=== PATIENT | female | born 1935 | race Caucasian/White ===

== ENCOUNTER 2017-07-13 00:05 | Inpatient (IN) | payer MEDICARE ==
[2017-07-13] MEDS ORDERED: BAYER CHEWABLE81 MG PO (01:12)
[2017-07-13] MEDS ORDERED: MULTIPLE VITAMI1 TA1 PO (01:12)
--- NOTE | 2017-07-13 01:19 | NUR ---
Patient arrived via EMS from [facility] at 00:05, patient alert and oriented, code status is Full Code, code wor is Cindy, daughter signed consents, physician aware, medications entered, will continue to monitor, Patient had been having Hallucinations and confusion.
[2017-07-13 04:15] VITALS: BP 138/70; BMI 21.0
[2017-07-13 06:46] LABS: BASOPHILS 0.4 % (0-2); EOSINOPHILS 5.3 % (0-7); HEMATOCRIT 43.3 % (36.0-48.0); HEMOGLOBIN 14.3 g/dL (12-16); LYMPHOCYTES 19.3 % (15-50); MCH 30.1 pg (26.0-34.0); MCV 91.2 fL (80.0-100.0); MEAN PLATELET VOLUME 10.2 fL (7.4-10.4); MONOCYTES 11.9 % (2-11); NEUTROPHILS 63.1 % (40-80); PLATELET COUNT 213 10x3/uL (130-400); RBC 4.75 10x6/uL (4.00-5.40); WBC 5.7 10x3/uL (4.8-10.8)
[2017-07-13 06:56] LABS: HEMOGLOBIN A1C 5.5 % (4.8-6.0)
[2017-07-13 07:12] LABS: ALBUMIN 3.1 g/dL (3.4-5.0); BILIRUBIN - TOTAL 0.44 mg/dL (0.2-1.3); CALCIUM 9.1 mg/dL (8.5-10.1); CARBON DIOXIDE 26.9 mmol/L (21.0-32.0); CHOL - HDL RATIO 4.5 ratio (2.3-4.1); CREATININE - SERUM 1.1 mg/dL (0.6-1.3); LDL-HDL RATIO 3.1 ratio (1.5-3.5); POTASSIUM - SERUM 3.9 mmol/L (3.5-5.1); PROTEIN - SERUM 7.1 g/dL (6.4-8.2); THYROID STIMULATING HORMONE 2.15 uIU/mL (0.36-3.74)
[2017-07-13 08:00] VITALS: BP 118/88
--- NOTE | 2017-07-13 10:10 | NUR ---
PATIENT IS ALERT TO NAME AND HOSPITAL, BUT SOME CONFUSION. SHE JUST WANTS TO GET OUT OF HERE. REDIRECT AND REORIENT FRQUENTLY. SHE IS VERY REPETATIVE, ABOUT WANTING TO GO LAY DOWN IN HER BED. ADMINISTERED PRESCRIBED MEDICATIONS. COMPLIANT WITH TAKING MEDS. CONTINUE PLAN OF CARE.
--- NOTE | 2017-07-14 03:31 | NUR ---
RECIEVED IN PATIENT ROOM. RESTING IN BED WITH EYES CLOSED. RESPONDS TO VOICE. CALM AND COOPERATIVE WTIH CARE AND ASSESSMENT. ENCOURAGE TO EXPRESS NEEDS. ENCOURAGE MEDICATION COMPLIANCE. REDIRECT AND REORIENT NEEDED. CONTINUE PLAN OF CARE.
[2017-07-14 08:00] VITALS: BP 122/77
--- NOTE | 2017-07-14 08:26 | NUR ---
PATIENT SITTING UP IN A CHAIR AND EATING HER BREAKFAST IN THE DINING ROOM. PATIENT IS AWAKE, ALERT, AND ORIENTED TO SELF ONLY. SCHEDULED MORNING MEDICATIONS GIVEN TO PATIENT. PATIENT SWALLOWED HER MEDS WITHOUT ANY DIFFICULTIES NOTED. WILL CONTINUE TO MONITOR PATIENT FRO SAFETY AND CONTINUE PLAN OF CARE.
[2017-07-14 19:30] VITALS: BP 138/75
--- NOTE | 2017-07-15 00:34 | NUR ---
RECEIVED IN ROOM. RESTING IN BED WITH EYES OPEN. CLAM AND COOPERATIVE [facility] CARE AND ASSESSMENT. NO SIGNS OF HALLUCINATIONS. ENCOURAGE TO EXPRESS NEEDS. REDIRECT AND REORIENT NEEDED. RESTING IN BED [facility] EYES CLOSED AT THIS TIME. CONTINUE PLAN OF CARE.
[2017-07-15 08:00] VITALS: BP 124/84
[2017-07-15 08:09] LABS: VITAMIN D 25 HYDROXY 39.4 ng/mL (30.0-100.0)
[2017-07-15 12:12] LABS: FOLATE (FOLIC ACID) - SERUM >20.0 ng/mL (>3.0)
--- NOTE | 2017-07-15 13:37 | PSY ---
PATIENT NAME:SERENE LAUGHLIN MEDICAL RECORD: [id number] : 39 LOCATION:[facility]anilla ADMISSION DATE: 07/13/17 ACCOUNT: [id number] PSYCHIATRIC EVALUATION DATE OF EVALUATION: 07/13/17 IDENTIFYING DATA: The patient is 82 years old and she is admitted to the hospital on a voluntary basis. CHIEF COMPLAINT: Depression. HISTORY OF PRESENT ILLNESS: The patient apparently is quite depressed. She endorses numerous neurovegetative depressive symptoms, but denies that she would seek to harm herself. She does say that she is ready to move on and by move on she means to and go and be with God. She states that she does not feel she has any real purpose even though she previously has been taking care of her older sister. She is . She has one daughter and the daughter is involved with her care. The patient feels overwhelmed by the responsibilities of life and endorses many vegetative depressive symptoms including some auditory hallucinations. Apparently, she has been observed talking to people not present, which is obviously quite alarming to her daughter. The patient freely admits that this is happening, but is not able to give me much in the way of details about it. PAST MEDICAL HISTORY: Remarkably clean for this elderly woman who takes no medicines other than an aspirin. PAST PSYCHIATRIC HISTORY: Denied by the patient. FAMILY HISTORY: Negative for psychiatric disease. ALLERGIES: No known drug allergies. CURRENT MEDICATIONS: Baby aspirin daily. SOCIAL HISTORY: The patient is . She does have 1 adult daughter and 1 grandchild. She enjoys seeing them and they have a good relationship. The patient lives in her own home and has been functioning independently. She has an older sister by more than 10 years that she is the caregiver for. She denies a history of drug or alcohol abuse. MENTAL STATUS EXAMINATION: The patient is awake, alert and oriented to person, place and is mildly mistaken about the date. Her mood is depressed. Her affect is constricted. Thought processes are goal directed. Memory, concentration, and abstraction abilities are mildly impaired. She denies any active intent to harm herself or others. She denies overt psychotic symptoms. ASSETS: Supportive family members. LIABILITIES: Limited insight. DIAGNOSTIC IMPRESSION: AXIS I: Major depression, severe, single episode with psychotic features. AXIS II: Deferred. AXIS III: None. AXIS IV: Moderate stressors. AXIS V: Global assessment of functioning is 40. PLAN: At this time, the patient is admitted to the hospital secondary to psychotic symptoms associated with a depressive illness. Interestingly, she has never had a depressive illness before and now she is having these psychotic symptoms. 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 I am going to ask Dr. Jolanta Gardner to test her. At this point, I am going to treat her for a depressive illness that has become psychotic. Her long-term prognosis is guarded. TRANSINT:[id number] Voice Confirmation ID: [id number] DOCUMENT ID: [id number] SONNY GARCIA MD at 1337 CC: [id number] DICTATION DATE: 07/13/17 1141 ORTHOPHOTOGRAPHY TECHNICIAN: 07/13/17 1155 ADM IN [facility] [address] [place] [address]
[2017-07-15 14:46] VITALS: BMI 21.0
--- NOTE | 2017-07-15 14:47 | NUR ---
PT CONTINUES TO BE PARANOID AND VERY WITHDRAWN AND GUARDED. ENCOURAGED PT TO ATTEND GROUPS AND EXPRESS FEELINGS WITH STAFF. MEDICATIONS GIVEN ORDERED. FALL PRECAUTIONS MAINTAINED. WILL CONTINUE TO MONITOR AND CONTINUE WITH PLAN OF CARE.
[2017-07-15 15:54] LABS: APPEARANCE CLEAR (CLEAR); BILIRUBIN NEGATIVE (NEGATIVE); COLOR YELLOW (YELLOW); GLUCOSE NEGATIVE (NEGATIVE); KETONE NEGATIVE (NEGATIVE); NITRITE NEGATIVE (NEGATIVE); PROTEIN NEGATIVE (NEGATIVE); SPECIFIC GRAVITY 1.015 (1.005-1.020); UROBILINOGEN NORMAL (NORMAL)
[2017-07-15 16:03] LABS: BACTERIA MODERATE /hpf (NONE SEEN); EPITHELIAL CELLS 0-5 /hpf (0-5); RED CELLS - URINE 0-5 /hpf (0-5); WHITE CELLS - URINE 0-5 /hpf (0-5)
[2017-07-15 21:18] VITALS: BP 102/79
--- NOTE | 2017-07-16 00:31 | NUR ---
RECEIVED IN PATIENT ROOM. RESTING IN BED WITH EYES OPEN. CALM AND COOPERATIVE WITH CARE AND ASSESSEMENT. NO SIGNS OF HALLUCINATIONS. ENCOURAGE TO EXPRESS NEEDS. RESTING IN BED WTIH EYES CLOSED AT THIS TIME. CONTINUE PLAN OF CARE.
[2017-07-16 03:10] LABS: RAPID PLASMA REAGIN Non Reactive (Non Reactive)
--- NOTE | 2017-07-16 13:30 | NUR ---
Alert and oriented to name and some what to place, has been wandering around on unit asking " can I go home now." Fixated on going outside, stares around room and does state to nurse that she has " i've been confused.", isolates and lays on sofa often turned away from others. No hallucinations noted. Monitor safety and refocus to reality versus nonreality. Continue plan of care.
--- NOTE | 2017-07-16 14:39 | PN ---
PATIENT:SERENE LAUGHLIN MEDICAL RECORD: [id number] LOCATION:[facility] Gonzalez ADMISSION DATE: 07/13/17 PROGRESS NOTE DATE OF SERVICE: 07/15/2017 SUBJECTIVE: The patient's case was discussed with staff. She has no new complaint. OBJECTIVE: The patient is in good behavioral control with limited insight about her condition. She does tolerate her medicines well. She has had some ongoing psychotic symptoms. She was tested by Dr. Jolanta Gardner and scored in the moderate range of impairment. Based on this testing, I am going to start her on a cholinesterase inhibitor. I discussed that with her today and she said she does not want to take one. She has had psychotic symptoms through the weekend and I have started her on Trilafon to assist with those symptoms. I think that there is going to have to be a significant revision of her treatment plan. At this point, I am not optimistic that she is going to be able to return to living independently. I am not sure how independent she had been, but clearly she is significantly and seriously impaired. TRANSINT:[id number] Voice Confirmation ID: [id number] DOCUMENT ID: [id number] SONNY GARCIA MD at 1439 CC: [id number] DICTATION DATE: 07/15/17 1408 INDUCTION HEAT TREATER: 07/15/17 1418 ADM IN [place] [id number] [place] [id number]
[2017-07-16 20:39] VITALS: BP 120/66
--- NOTE | 2017-07-17 03:16 | NUR ---
RECEIVED IN BEDROOM. LAYING IN BED WITH EYES CLOSED. RESPONDS TO VOICE. CALM AND COOPERATIVE WITH CARE AND ASSESSMENTS. NO SIGNS OF HALLUCINATIONS. REDIRECT AND REOINET NEEDED. ENCOURAGE TO EXPRESS NEEDS. CONTINUE PLAN OF CARE
--- NOTE | 2017-07-17 10:16 | NUR ---
PT CONTINUES TO BE GUARDED AND SUSPICIOUS. SHE DOES NOT SOCIALIZE WITH STAFF OR OTHER PTS WITHOUT PROMPTING. NO AGGRESSION NOTED. NO HALLUCINATIONS REPORTED BUT STAFF DID STATE THAT SHE WAS TALKING TO UNSEEN OTHER ON THE PREVIOUS DAYSHIFT. MEDICATIONS GIVEN ORDERED. WILL CONTINUE TO MONITOR AND CONTINUE WITH PLAN OF CARE.
[2017-07-17 11:12] VITALS: BP 97/68
--- NOTE | 2017-07-17 16:41 | PN ---
PATIENT:SERENE LAUGHLIN MEDICAL RECORD: [id number] LOCATION:[facility] ADMISSION DATE: 07/13/17 PROGRESS NOTE DATE OF SERVICE: 07/16/2017 SUBJECTIVE: The patient's case was discussed with staff. She has no new complaint. OBJECTIVE: The patient is very paranoid. She stares about the room. She looks as though she is attending to things not present. She is highly suspicious about her food, although she has been taking her medicines for some reason that seems inconsistent with the overall state. She insists she is not hearing any voices or having any paranoia, but the way she insists that she is not having the symptoms without even being asked about it is very suspicious and not really consistent with how she has been. ASSESSMENT: No change in diagnoses. PLAN: The patient strongly denies that she would seek to harm herself or others. I am going to treat her with a different antipsychotic medication since the Trilafon does not seem to be helping at all. I started her on Risperdal at a dose of 1 mg daily. I think her long-term prognosis is guarded. Supportive and educational interventions were made. TRANSINT:[id number] Voice Confirmation ID: [id number] DOCUMENT ID: [id number] SONNY GARCIA MD at 1641 CC: [id number] DICTATION DATE: 07/16/17 1504 SMOKING TOBACCO PACKER HAND: 07/16/17 1551 ADM IN [facility] [address] [place] [address]
--- NOTE | 2017-07-17 18:31 | NUR ---
Resting quietly in day room, alert, no s/s pain or distress.
[2017-07-17 19:38] VITALS: BP 114/66
--- NOTE | 2017-07-18 01:58 | NUR ---
RECEIVED IN BEDROOM. RESTING IN BED WITH EYES OPEN. NOT SOCIALIZING. PATIENT ISOLATES HERSELF FROM PEERS. CALM AND COOPERATIVE WITH CARE AND ASSEESSMENT. NO SIGNS OF HALLUCINATIONS. REDIRECT AND REORINT NEEDED. ENCOURAGE TO EXPRESS NEEDS. AND SOCIALIZE. RESTING IN BED WTIH EYES CLOSED AT THIS TIME. CONTINUE PLAN OF CARE
[2017-07-18 08:30] VITALS: BP 117/73
--- NOTE | 2017-07-18 12:00 | NUR ---
B) PATIENT IS PARANOID, SHE IS WATCHFUL, IF STAFF WALK BEHIND HER, SHE TURNS AROUND QUICKLY AND STARES AND LOOKS SCARED WITH EYES WIDE OPEN. PATIENT IS NOT ABLE TO SIT STILL AND SHE DOES TRY TO SIT AWAY FROM EVERYONE. PATIENT AMBULATES INDEPENDENTLY. HAVE NOT SEEN HER CONVERSING WITH UNSEEN OTHERS TODAY. I) PROVIDE PRESCRIBED MEDS. R) PATIENT IS COMPLIANT WITH MEDS AND UNIT MILIEU. P) CONTINUE POC.
[2017-07-18 19:30] VITALS: BP 100/70
--- NOTE | 2017-07-19 03:33 | NUR ---
B) patient is alert and oriented to self and being in a hospital, restless at times, wanders at times, I) Administerd scheduled medications, monitored for safety, R) medications compliant, no behaviors noted, P) Continue plan of care.
[2017-07-19 08:30] VITALS: BP 98/62
--- NOTE | 2017-07-19 10:30 | NUR ---
B) PATIENT IS AWAKE AND ALERT, SHE IS PARANOID AND SHE IS WATCHFUL, SHE ASKED ABOUT ALL OF HER MEDS AND SHE SAID SHE DIDN'T THINK SHE NEEDED TO TAKE ALL OF THEM, BUT SHE DID TAKE THEM. SHE AMBULATES INDEPENDENTLY. R) PROVIDE PRESCRIBED MEDS. P) CONTINUE POC.
[2017-07-19 19:30] VITALS: BP 119/88
--- NOTE | 2017-07-20 03:31 | NUR ---
B) Patient is alert and oriented to self and being in a hospital, cooperative with care and assessment, I) Administerd scheduled medication, monitored for behaviors, R) Medication compliant, pleasant and friendly. P) Continue plan of care.
--- NOTE | 2017-07-20 05:45 | PN ---
PATIENT:SERENE LAUGHLIN MEDICAL RECORD: [id number] LOCATION:[facility] ADMISSION DATE: 07/13/17 PROGRESS NOTE DATE OF SERVICE: 07/19/2017 SUBJECTIVE: No new complaint. OBJECTIVE: Staff reports the patient continues to be rather paranoid. However, she is passively cooperative. On exam, mood is euthymic. Affect reserved. Speech is rather terse. Content of thought is positive for nonspecific paranoid ideation. Sensorium unchanged. ASSESSMENT: No change in diagnosis. PLAN: 1. Maintain current medication. 2. Continue supportive therapy. TRANSINT:[id number] Voice Confirmation ID: [id number] DOCUMENT ID: [id number] DORIS WIGGINS III, MD at 0545 CC: [id number] DICTATION DATE: 07/19/17 1157 ASSISTANT TEACHING PROFESSOR: 07/19/17 1205 ADM IN [facility] [address] [place] [address]
[2017-07-20 08:00] VITALS: BP 121/67
--- NOTE | 2017-07-20 12:56 | NUR ---
B) PATIENT IS TALKING TO UNSEEN OTHERS AND SHE IS RESTLESS, SHE KEEPS GETTING UP AND DOWN FROM SITTING AND SHE LOOKS OUT THE DOOR, BUT THEN COMES BACK. ASKED PATIENT IF SHE IS HEARING VOICES AND SHE SAID "NO, MA'AM" PATIENT IS RESTLESS AND WALKS ASSISTED TO THE BATHROOM THEN COMES BACK, HAVE SEEN HER TALKING TO SOMEONE ELSE, BUT SHE DENIES THAT SHE HEARS VOICES TODAY. I) PROVIDE PRESCRIBED MEDS. R) PATIENT IS COMPLIANT WITH MEDS. SHE IS WATCHFULL AND DOES NOT WANT TO TAKE HER MEDS, BUT SHE DOES DO IT SLOWLY. PATIENT AMBULATES INDEPENDENTLY, SHE IS ORIENTED X3, SHE HAS NO INSIGHT INTO HER ILLNESS. P) CONTINUE POC.
[2017-07-20 19:30] VITALS: BP 148/81
--- NOTE | 2017-07-21 04:40 | NUR ---
B) patient is alert and oriented to self , place and time, restless and guarded, I) Administered scheduled medications, monitored for safety R) Medication compliant, social with peers, friendly P) Continue plan of care.
[2017-07-21 08:00] VITALS: BP 105/55
--- NOTE | 2017-07-21 09:20 | NUR ---
B) AWAKE AND ALERT X 3. SHE IS WATCHFUL OF OTHERS AND HAS NO INSIGHT INTO HER ILLNESS. SHE TALKS TO UNSEEN PEOPLE, BUT DENIES HEARING ANY VOICES. SHE AMBULATES INDEPENDENTLY. I) ADMINISTERED PRESCRIBED MEDICATIONS, VSS, ASSESSMENT COMPLETED. R) COMPLIANT WITH MEWDICATIONS AND UNIT MILIEU. P) CONTINUE PLAN OF CARE.
[2017-07-21 19:30] VITALS: BP 129/74
--- NOTE | 2017-07-21 21:49 | NUR ---
RECEIVED IN DINING AREA. SITTING AT TABLE. NOT SOCIALIZING WITH PEERS. CALM AND COOPERATIVE WITH CARE AND ASESSMENTS. NO SIGNS OF HALLUCIANTIONS. NO SIGNS OF PARANOIA. CONTINUES TO SIT QUIETLY AT TABLE. CONTINUE PLAN OF CARE
[2017-07-22 09:41] VITALS: BP 138/82
--- NOTE | 2017-07-22 10:12 | PN ---
PATIENT:SERENE LAUGHLIN MEDICAL RECORD: [id number] LOCATION:[facility] ADMISSION DATE: 07/13/17 PROGRESS NOTE DATE OF SERVICE: 07/21/2017 SUBJECTIVE: No new complaint. OBJECTIVE: The patient overall remains somewhat avoidant. Staff note that she continues to exhibit some paranoid ideation. On exam, mood is slightly anxious. Affect is overall constricted. Speech is quite terse. Content of thought as noted above. Sensorium unchanged. ASSESSMENT: No change in diagnosis. PLAN: 1. Maintain current medication. 2. Continue supportive therapy. TRANSINT:[id number] Voice Confirmation ID: [id number] DOCUMENT ID: [id number] DORIS WIGGINS III, MD at 1012 CC: [id number] DICTATION DATE: 07/21/17 1639 CASH CONTROLLER: 07/21/172219 ADM IN [place] [id number] [place] [address]
--- NOTE | 2017-07-22 14:04 | PN ---
PATIENT:SERENE LAUGHLIN MEDICAL RECORD: [id number] LOCATION:[facility] ADMISSION DATE: 07/13/17 PROGRESS NOTE DATE OF SERVICE: 07/17/2017 SUBJECTIVE: The patient's case was discussed with staff. She has no new complaint. OBJECTIVE: The patient is paranoid and withdrawn. She denies that she would seek to harm herself or others. She is also denying overt psychotic symptoms, but she clearly is paranoid and clearly is having psychotic symptoms. ASSESSMENT: No change in diagnoses. PLAN: The patient will be maintained on current medicines, which I have reviewed. Her long-term prognosis is guarded. Brief supportive and educational interventions were made. I know the plan from the family is for her to go back and live with her sister. She apparently does have relatives who live on her left and right and check in on her multiple times a day. This is probably not ideal, but it does not rise to the level of being reportable to the authorities. TRANSINT:[id number] Voice Confirmation ID: [id number] DOCUMENT ID: [id number] SONNY GARCIA MD at 1404 CC: [id number] DICTATION DATE: 07/17/17 171 PRINCIPAL JAVA SOFTWARE ENGINEER: 07/17/17 1844 ADM IN [facility] [address] [place] [address]
--- NOTE | 2017-07-22 14:04 | PN ---
PATIENT:SERENE LAUGHLIN MEDICAL RECORD: [id number] LOCATION:[facility] ADMISSION DATE: 07/13/17 PROGRESS NOTE DATE OF SERVICE: 07/18/2017 SUBJECTIVE: The patient's case was discussed with staff. She has no new complaint. OBJECTIVE: The patient is in good behavioral control with limited insight about her condition. She generally tolerates her medicines well. ASSESSMENT: No change in diagnoses. PLAN: Brief supportive and educational interventions were made. The patient's long-term prognosis is guarded. I am going to increase the dose of her Effexor. TRANSINT:[id number] Voice Confirmation ID: [id number] DOCUMENT ID: [id number] SONNY GARCIA MD at 1404 CC: [id number] DICTATION DATE: 07/18/17 1510 COIN MACHINE SERVICER REPAIRER: 07/18/17 1812 ADM IN [facility] [address] [place] [id number]
[2017-07-22] MEDS ORDERED: LIPITOR10 MG PO (14:26)
[2017-07-22] MEDS ORDERED: RISPERDAL0.5 MG PO (14:26)
[2017-07-22] MEDS ORDERED: NAMENDA5 MG PO (14:26)
[2017-07-22] MEDS ORDERED: EFFEXOR37.5 MG PO (14:27)
--- NOTE | 2017-07-22 16:55 | NUR ---
IGNACIO SPOKE WITH MAGUI RICHARD DUE TO NOT BEING ABLE TO LEAVE PT'S DTR, LINDA, A VOICEMAIL. PT WILL BE READY FOR DISCHARGE TOMORROW. MAGUI STATED SHE WILL GET LINDA TO CALL AND SCHEDULE PROSTHETIC TECHNICIAN TIME AND LEAVE MD/PHARMACY INFORMATION.
--- NOTE | 2017-07-22 17:32 | NUR ---
spoke with pt's daughter who is upset with discharge plans of tomorrow. she stated that she has nothing in place for discharge. i informed the daughter that we would give her time to get things into place before discharge. she is also upset because her mother does not have a pcp and is now on medications which she does not feel that she needs. educated daughter on the medications and that we always give a 30 day prescription on new medications. she asked why she was not told earlier about the discharge date. i explained that when she had called earlier the doctor had not been in to see the patient. i explained how the number we had for her was unable to leave a message. adoption social worker did try both numbers for her to explain about discharge date. i gave the daughter my direct number to contact me with any questions and explained that is she needed time to get things into place to please let me know. daughter thanked me and stated she would call me back.
--- NOTE | 2017-07-22 22:29 | NUR ---
RECEIVED IN BEDROOM. RESTING IN BED WITH EYES CLOSED. RESPONDS TO VOICE. CALM AND COOPERATIVE WITH CARE AND ASSESSMENTS. NO SIGNS OF HALLUCINATIONS. REDIRECT AND REORIENT NEEDED. RESTING IN BED WITH EYES CLOSED AT THIS TIME CONTINUE PLAN OF CARE
[2017-07-23 06:57] VITALS: BP 135/76
[2017-07-23 08:30] VITALS: BP 135/76
--- NOTE | 2017-07-23 08:59 | NUR ---
SW SPOKE WITH PT'S DTR, LINDA. SHE STATED SHE WAS SORRY FOR THE MISUNDERSTANDING AND REALIZED SW JUST LEFT HER A MESSAGE TO CALL HER AND DID NOT SET UP DISCHARGE PLANS WITH OTHER FAMILY MEMBERS. DTR REQUESTED FOR ONE MORE DAY DUE TO WANTING TO ELECTROCARDIOGRAPH REPAIRER HER MOTHER HERSELF. SHE STATED HER MOTHER DOES NOT HAVE A PCP OR PHARMACY. SHE WANTED MEDICATIONS SENT TO [facility] ON [address] SW STATED THE IMPORTANCE OF GETTING HER MOTHER A PCP AND THAT SHE WILL LEAVE WITH A 30 DAY PRESCRIPTION OF ALL PSYC MEDICATIONS. LINDA STATED SHE WAS APPRECIATIVE OF CARE HER MOTHER HAS RECIEVED AND WILL PICK HER UP TOMORROW AT 10 AM. SHE VERBALIZED UNDERSTANING OF DISCUSSION.
[2017-07-23 12:38] VITALS: BMI 21.0
--- NOTE | 2017-07-23 14:20 | PN ---
PATIENT:SERENE LAUGHLIN MEDICAL RECORD: [id number] LOCATION:[facility] Gonzalez ADMISSION DATE: 07/13/17 PROGRESS NOTE DATE OF SERVICE: 07/22/2017 SUBJECTIVE: The patient's case was discussed with staff. She has no new complaint. OBJECTIVE: The patient denies intent to harm herself or others. She generally tolerates her medicines well. She has no psychotic symptoms. ASSESSMENT: No change in diagnoses. PLAN: The patient will be transitioned out of the hospital tomorrow. Her long-term prognosis is guarded. Brief supportive and educational interventions were made. TRANSINT:[id number] Voice Confirmation ID: [id number] DOCUMENT ID: [id number] SONNY GARCIA MD at 1420 CC: [id number] DICTATION DATE: 07/22/17 1451 OVERCASTER: 07/22/17 1515 ADM IN [place] [id number] [place] [address]
[2017-07-23 20:25] VITALS: BP 130/73
--- NOTE | 2017-07-23 22:18 | NUR ---
AWAKE, ALERT AND ORIENTED X3. DENIES ANY PAIN, JUST WANTS TO LEAAVE THIS PLACE. CALM AND COOPERATIVE WITH CARE AND ASSESSMENT. MEDICATION COMPLIANT. CONTINUE PLAN OF CARE.
--- NOTE | 2017-07-23 23:02 | NUR ---
RECEIVED IN BEDROOM. RESTING IN BED WITH EYES CLOSED. RESPONDS TO TO VOICE. CALM AND COOPERATIVE WITH CARE AND ASSESSMENTS. NO SIGNS OF HALLUCINATIONS. REDIRECT AND REORIENT NEEDED. ENCOURAGE TO EXPRESS NEEDS. RESTING IN BED WITH EYES CLOSED AT THIS TIME. CONTINUE PLAN OF CARE
--- NOTE | 2017-07-24 09:00 | NUR ---
B) PATIENT IS AWAKE AND ALERT TODAY, SHE HAS NOT MENTIONED ANY DEPRESSION, SHE HAS NOT SHOWN ANY INDICATION FOR AUDITORY OR VISUAL HALLUCINATIONS, SHE IS ORINENTED 3, SHE IS CALM AND COOPERATIVE. I) EXPLAINED TO PATIENT THAT SHE WILL NEED TO OBTAIN A PCP BECAUSE SHE HAS PRESCRIPTIONS THAT WILL RUN OUT IN 30 DAYS. PATIENT TO D/C HOME. MEDS CALLED TO [facility] [address]. R) PATIENT IS AMBULATING INDEPNDENTLY, BELONGINGS ACCOUNTED FOR AND PACKED. P) CONTINUE D/C PLAN.
--- NOTE | 2017-07-24 09:50 | NUR ---
PT'S DTR, LINDA, CALLED AND STATED SHE CANNOT FIND THE KEYS TO HER MOTHER'S CAR. SHE REPORTED SHE WOULD COME TO THE UNIT SOON SHE FINDS THEM. IGNACIO STATED A FAMILY MEMBER, RAQUEL, HAD THE PASSCODE AND WAS ON THE UNIT WILLING TO TAKE PT HOME IF SHE COULDN'T MAKE IT. LINDA STATED RAQUEL WOULD BE THE MOST PERFECT OF ALL TO TAKE HER TO HER HOME. IGNACIO CALLED THE DAYROOM AND RELAYED MESSAGE TO CARLOS DAVEY. PT WILL BE TAKEN HOME BY RAQUEL AND DTR EXPRESSED GRATITUDE.
--- NOTE | 2017-07-24 09:50 | NUR ---
PATIENT'S NIECE CAME TO PICK HER UP, BUT WE THOUGHT THE DAUGHTER WAS GOING TO PICK HER UP. HANNY Hardin CALLED THE DAUGHTER TO SEE IF IT IS OK FOR HER TO LEAVE WITH HER AND THE DAUGHTER SAID OK. PATIENT ASSISTED TO THE CAR AND SHE IS NOW D/C'D FROM [facility].
[2017-07-24 10:36] VITALS: BP 115/71
--- NOTE | 2017-07-24 15:06 | PN ---
PATIENT:SERENE LAUGHLIN MEDICAL RECORD: [id number] LOCATION:[facility] ADMISSION DATE: 07/13/17 PROGRESS NOTE DATE OF SERVICE: 07/23/2017 SUBJECTIVE: The patient's case was discussed with staff. She has no new complaint. OBJECTIVE: The patient is in good behavioral control with limited insight about her condition. She tolerates her medicines well. Eye contact is poor. ASSESSMENT: No change in diagnoses. PLAN: Brief supportive and educational interventions were made. Shelter prognosis is guarded. TRANSINT:[id number] Voice Confirmation ID: [id number] DOCUMENT ID: [id number] SONNY GARCIA MD at 1506 CC: [id number] DICTATION DATE: 07/23/17 1450 COOLER TENDER: 07/23/17 1507 DIS IN 07/24/17 [facility] [address] [place] [address]
--- NOTE | 2017-07-25 13:50 | PN ---
PATIENT:SERENE LAUGHLIN MEDICAL RECORD: [id number] LOCATION:[facility]AM Gonzalez ADMISSION DATE: 07/13/17 PROGRESS NOTE DATE OF SERVICE: 07/24/2017 SUBJECTIVE: The patient's case was discussed with staff. She has no new complaint. OBJECTIVE: The patient no longer having psychotic symptoms. She is tolerating her medicines well. ASSESSMENT: No change in diagnoses. PLAN: The patient was transitioned out of the hospital earlier today. Followup is to be with her primary care physician. She has no evidence of acute or direct dangerousness. TRANSINT:[id number] Voice Confirmation ID: [id number] DOCUMENT ID: [id number] SONNY GARCIA MD at 1350 CC: [id number] DICTATION DATE: 07/24/17 1623 CONFERENCE ASSISTANT: 07/24/17 1655 DIS IN 07/24/17 [place] [id number] [place] [address]
--- NOTE | 2017-08-08 12:30 | DS ---
PATIENT:SERENE LAUGHLIN :39 MEDICAL RECORD: [id number] DISCHARGE SUMMARY ADMISSION DATE: 07/13/17 DISCHARGE DATE: 07/24/17 IDENTIFYING DATA: The patient is 82 years old and she was admitted to the hospital on a voluntary basis secondary to depression. The patient endorsed numerous neurovegetative depressive symptoms, but denied that she would seek to harm herself or others. She was and had one daughter who was involved with her care. She felt overwhelmed by her responsibilities. Apparently, she had been observed talking to people not present and this alarmed daughter significantly. The patient did admit that this was happening, but had little in the way of specifics to give about it. HOSPITAL COURSE: The patient was admitted to the hospital and found to be significantly depressed. She was not having active suicidal thoughts and she was treated with both antipsychotic and antidepressant medications and did show significant improvement. She was subsequently transitioned out of the hospital. DISCHARGE DIAGNOSES: AXIS I: Major depression, severe, single episode with psychotic features. AXIS II: None. AXIS III: None. AXIS IV: Moderate stressors. AXIS V: Global assessment of functioning is 45. PLAN: At the time of discharge, the patient was in good behavioral control and was not acutely dangerous to herself or others. She was tolerating her medications well and arrangements were made for her to have followup outpatient therapy. Her long-term prognosis is guarded. TRANSINT:[id number] Voice Confirmation ID: [id number] DOCUMENT ID: [id number] SONNY GARCIA MD at 1230 CC: [id number] DICTATION DATE: 08/07/17 1222 SOUND EFFECTS PERSON: [id number] DIS IN 07/24/17 [facility] [address] [place] [address]
== END 2017-07-24 10:00 | disposition home or self-care (01) | DRG 885 ==
LOC: D.PSYCH 00:05 → UNDOADMIN 00:05 → D.PSYCH 07-24 10:00
PROVIDERS: ADMIT Psychiatry & Neurology Psychiatry
DX: F32.3 Major depressive disorder, single episode, severe with psychotic features (principal); F02.81 Dementia in other diseases classified elsewhere, unspecified severity, with behavioral disturbance; F05 Delirium due to known physiological condition; G30.9 Alzheimer's disease, unspecified; E78.5 Hyperlipidemia, unspecified

== ENCOUNTER → 2017-08-23 10:30 | Outpatient (CLI) | payer MEDICARE ==
[~2017-08-23 10:30] MED LIST: BAYER CHEWABLE81 MG PO; EFFEXOR37.5 MG PO; LIPITOR10 MG PO; MULTIPLE VITAMI1 TA1 PO; NAMENDA5 MG PO; RISPERDAL0.5 MG PO
== END | disposition home or self-care (01) ==
LOC: D.CT 10:00
DX: R41.82 Altered mental status, unspecified (principal)

== ENCOUNTER → 2018-10-17 13:46 | Outpatient (CLI) | payer OTHER | END | disposition home or self-care (01) | LOC: D.CT 09-30 13:00 | DX: R35.0 Frequency of micturition (principal) ==

== ENCOUNTER 2019-07-07 09:32 | Inpatient (IN) | payer OTHER ==
[~2019-07-07] VITALS: Ht 157.5 cm; Wt 49.1 kg
[2019-07-07] MEDS ORDERED: ATARAX 25 MG TA25 MG PO (09:41)
--- NOTE | 2019-07-07 09:50 | NUR ---
PT UNABLE TO PRODUCE URINE SAMPLE DUE TO THE FACT THAT SHE USED THE RESTROOM IN THE WAITING ROOM PRIOR TO SIGNING IN TO THE ED, PT WAS GIVEN WATER TO TRY AND PRODUCE URINE SAMPLE FOR TESTING.
[2019-07-07 10:13] LABS: BASOPHILS 0.5 % (0-2); HEMATOCRIT 46.1 % (36.0-48.0); HEMOGLOBIN 15.1 g/dL (12-16); IMMATURE GRANULOCYTES 0.1 % (0-5); LYMPHOCYTES 21.2 % (15-50); MCH 29.8 pg (26.0-34.0); MCHC 32.8 g/dL (31.0-37.0); MCV 91.1 fL (80.0-100.0); MEAN PLATELET VOLUME 9.9 fL (7.4-10.4); MONOCYTES 11.8 % (2-11); NEUTROPHILS 62.4 % (40-80); RBC 5.06 10x6/uL (4.00-5.40); RDW 14.6 % (11.5-14.5); WBC 7.7 10x3/uL (4.8-10.8)
[2019-07-07 10:14] LABS: PLATELET COUNT 308 10x3/uL (130-400)
--- NOTE | 2019-07-07 10:22 | NUR ---
URINE SAMPLE SENT TO LAB
[2019-07-07 10:32] LABS: APPEARANCE CLEAR (CLEAR); BILIRUBIN NEGATIVE (NEGATIVE); COLOR STRAW (YELLOW); GLUCOSE NEGATIVE (NEGATIVE); KETONE NEGATIVE (NEGATIVE); NITRITE NEGATIVE (NEGATIVE); PROTEIN NEGATIVE (NEGATIVE); SPECIFIC GRAVITY 1.005 (1.005-1.020); UROBILINOGEN NORMAL (NORMAL)
[2019-07-07 10:33] LABS: UDS - AMPHET NEGATIVE QUAL (NEGATIVE); UDS - BARB NEGATIVE QUAL (NEGATIVE); UDS - BENZO NEGATIVE QUAL (NEGATIVE); UDS - COCAINE NEGATIVE QUAL (NEGATIVE); UDS - OPIATE NEGATIVE QUAL (NEGATIVE); UDS - PCP NEGATIVE QUAL (NEGATIVE); UDS - THC NEGATIVE QUAL (NEGATIVE)
[2019-07-07 10:36] LABS: ALBUMIN 3.5 g/dL (3.4-5.0); ANION GAP 10.5 mmol/L (8-16); BILIRUBIN - TOTAL 0.4 mg/dL (0.2-1.3); CARBON DIOXIDE 28.7 mmol/L (21.0-32.0); CREATININE - SERUM 0.8 mg/dL (0.6-1.3); MAGNESIUM - SERUM 2.1 mg/dL (1.8-2.4); POTASSIUM - SERUM 4.2 mmol/L (3.5-5.1); PROTEIN - SERUM 8.3 g/dL (6.4-8.2); T4 THYROXIN - FREE 1.14 ng/dL (0.76-1.46); THYROID STIMULATING HORMONE 3.38 uIU/mL (0.36-3.74)
[2019-07-07 10:41] LABS: CALCIUM 9.2 mg/dL (8.5-10.1)
[2019-07-07 11:45] VITALS: BP 128/72
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
[2019-07-07 13:51] LABS: CHOL - HDL RATIO 4.9 ratio (2.3-4.1); LDL-HDL RATIO 3.4 ratio (1.5-3.5)
[2019-07-07] MEDS ORDERED: ATARAX 25 MG TA25 MG (15:09)
[2019-07-07 16:13] VITALS: BP 128/72; BMI 19.4
[2019-07-07 20:29] VITALS: BP 126/68; BP 99/55
--- NOTE | 2019-07-07 21:31 | NUR ---
RECEIVED IN DAYROOM. SOCIALIZING WITH PEERS. CALM AND COOPERATIVE WITH CARE AND ASSESSMENT. DENIES THOUGHTS OF SELF HARM THIS EVENING. REDIRECT AND REORIENT NEEDED. RESTING IN BED WITH EYES CLOSED AT THIS TIME. CONTINUE PLAN OF CARE.
[2019-07-08 08:11] LABS: RAPID PLASMA REAGIN Non Reactive (Non Reactive)
[2019-07-08 08:12] VITALS: BP 162/93
[2019-07-08 10:26] VITALS: Ht 157.5 cm; Wt 49.1 kg
--- NOTE | 2019-07-08 13:29 | NUR ---
PT IN DAYROOM ATTENDING GROUP WITH STAFF AND PEERS. AWAKE AND ALERT X 3. PT IS CONFUSED AT TIMES. PT IS VERY TEARFUL AND PARANOID AT TIMES. PT DENIES SI AT THIS TIME. PT STATES " I MESSED UP AND IM SCARED." EXPLAINED TO PT SHE IS SAFE HERE. REDIRECT AND REORIENT NEEDED. MED COMPLIANT. FALL PRECAUTIOSN IN PLACE. WILL CPOC.
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
--- NOTE | 2019-07-08 15:49 | NUR ---
updated pt's daughter in regards to pt's behavior and tx plan. verbalized understanding.
[2019-07-08 20:00] VITALS: BP 122/68
--- NOTE | 2019-07-08 23:49 | NUR ---
B.) PT IS ALERT AND ORIENTED TO SELF, SITUATION AND PLACE. SHE IS ABLE TO AMBULATE WITHOUT ASSISTANCE. SHE MAKES HER NEEDS KNOWN. SHE IS PLEASANT WITH STAFF AND PEERS. I.) PROVIDED PM MEDICATIONS. R.) COMPLIANT WITH ALL MEDICATIONS. P.) CONTINUE PLAN OF CARE
[2019-07-09 08:58] VITALS: BP 136/85
--- NOTE | 2019-07-09 10:00 | NUR ---
RECEIVED PT IN DINING ROOM FOR B'FAST, ALERT, CALM, COOPERATIVE. MEDS ADMIN PER ORDERS WITH COMPLETE MED COMPLIANCE NOTED. ABLE TO MAKE NEEDS KNOWN. COOPERATIVE WITH STAFF AND PLAN OF CARE. CONT POC DIRECTED.
--- NOTE | 2019-07-09 12:22 | NUR ---
NUTRITION F/U PT TOLERATING REG DIET WITH 75 TO 100% INTAKE RECENT MEALS. NO NEW WT TO ASSESS. WILL PROVIDE DIET, MONITOR PO INTAKE AND WT. RD FOLLOWING
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
[2019-07-09 20:20] VITALS: BP 124/50
--- NOTE | 2019-07-10 00:53 | NUR ---
B) patient is alert and oriented to person, wanders at times, I) Administered scheduled medications as ordered, monitored for safety R) Mediation compliant, pleasnat and friendly tward staff P) Continue plan of care.
[2019-07-10 08:57] VITALS: BP 135/91
[2019-07-10 09:00] VITALS: BP 135/91
--- NOTE | 2019-07-10 09:07 | NUR ---
RECEIVED PT IN HALLWAY, ALERT, CALM, QUIET, DENIES SUICIDAL IDEATIONS, NO BEHAVORIAL ISSUES NOTED. MEDS ADMIN PER ORDERS WITH COMPLETE MED COMPLIANCE NOTED. COOPERATIVE WITH CARE, CONT POC DIRECTED.
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
--- NOTE | 2019-07-10 15:13 | PN ---
PATIENT:SERENE LAUGHLIN MEDICAL RECORD: [id number] LOCATION:[facility]IR[facility] Bean[facility]iba112 ADMISSION DATE: 07/07/19 PROGRESS NOTE DATE OF SERVICE: 07/09/2019 SUBJECTIVE: The patient's case was discussed with staff. She has no new complaint. OBJECTIVE: The patient is in good behavioral control and tolerating her medicines well. I think she is improving with the use of the Effexor, and at this point, I am not going to add an antipsychotic medication to her regimen. ASSESSMENT: Major depression. PLAN: Current medicines and therapies have been reviewed and will be maintained. Long-term prognosis is guarded. TRANSINT:[id number] Voice Confirmation ID: [id number] DOCUMENT ID: [id number] SONNY GARCIA MD at 1513 CC: [id number] DICTATION DATE: 07/09/19 1536 DIRECT MARKETING COORDINATOR: 07/09/19 2242 ADM IN [facility] [address] [place] [address]
--- NOTE | 2019-07-10 18:09 | NUR ---
TPT WILL PACE LOOKING OUT THE WINDOWS. ASKING AT TIMES "ARE WE SAFE HERE?" NURSE REASSURE PT SEVERAL TIMES THAT SHE IS SAFE WITH US. THAT THE WINDOWS AND DOORS ARE LOCKED. PT VOICES UNDERSTANDING. STILLS CONTS TO PACE AND LOOK AROUND.
--- NOTE | 2019-07-10 20:09 | NUR ---
PATIENT IS QUIET, GUARDED AND STAYS TO HERSELF, CAN MAKE NEEDS KNOWN, COMPLIANT WITH MEDS. WILL FOLLOW POC
[2019-07-10 21:30] VITALS: BP 131/63
--- NOTE | 2019-07-11 09:52 | NUR ---
B) The patient has requested multiple cups of coffee. She ambulates independently and she wanders. She does not sit still. She has asked staff to help her get out of here. She acts like she is looking for something, but when staff ask her she says "No, I'm ok." She denies S.I, but she admits she is depressed. I) Provide prescribed meds. R) The patient is compliant with meds. P) Continue POC.
[2019-07-11 10:30] VITALS: BP 132/81
--- NOTE | 2019-07-11 11:06 | PN ---
PATIENT:SERENE LAUGHLIN MEDICAL RECORD: [id number] LOCATION:[facility] Morris112 ADMISSION DATE: 07/07/19 PROGRESS NOTE DATE OF SERVICE: 07/10/2019 SUBJECTIVE: The patient's case was discussed with staff. She has no new complaint. OBJECTIVE: The patient is making a number of delusional statements to the staff about someone or something wanting to hurt her. This is an ongoing problem. She is not in touch with reality. I have been reluctant to start her on an antipsychotic because of concerns about side effects and wanting to limit her medications. In addition to this, she has a history of noncompliance and adding an additional medicine increases the risk of her discontinuing them altogether. ASSESSMENT: Major depression. PLAN: The patient is clearly delusional. I am going to start her on Trilafon in addition to the Effexor, which she had not been taking prior to admission. I have emphasized the importance of medication compliance. I think that she is going to accept that. TRANSINT:[id number] Voice Confirmation ID: [id number] DOCUMENT ID: [id number] SONNY GACRIA MD at 1106 CC: [id number] DICTATION DATE: 07/10/19 1523 AIRFIELD MANAGER: 07/10/19 2313 ADM IN [id number] [place] [address]
--- NOTE | 2019-07-11 11:09 | NUR ---
The patient is confused, she has asked to leave or make a phone call a couple different times. She is redirected to unit milieu. She responds appropriately to redirection and follows direction without getting upset.
--- NOTE | 2019-07-11 16:27 | NUR ---
The patient is anxious and she is moving her feet and she guarded. She is not wanting to talk to her daughter. Ativan 0.5 mg po given now.
[2019-07-11 22:46] VITALS: BP 140/73
--- NOTE | 2019-07-12 00:15 | NUR ---
REC'D SITTING IN THE DAYROOM. ORIENTED X3. PLEASANT WHEN SPEAKING WITH PATIENT. DENIES SI AT THIS TIME. ADMINISTER MEDS Q SHIFT AND MONITOR COMPLIANCE. OBTAIN VERBAL NO HARM CONTRACT. MED COMPLIANT. CCONTRACTS VERBALLY FOR NO SELF HARM. CONTINUE POC AND PROVIDE SAFE ENVIRONMENT.
[2019-07-12 08:00] VITALS: BP 129/86
--- NOTE | 2019-07-12 10:45 | PN ---
PATIENT:SERENE LAUGHLIN MEDICAL RECORD: [id number] LOCATION:AIRAM Dutta ADMISSION DATE: 07/07/19 PROGRESS NOTE DATE OF SERVICE: 07/11/2019 SUBJECTIVE: The patient's case was discussed with staff. She has no new complaint. OBJECTIVE: The patient is depressed and is having psychotic symptoms. She has this feeling of impending doom, that she has done something wrong and is going to be punished, but cannot elaborate. ASSESSMENT: Major depression with psychosis. PLAN: The patient is on an antipsychotic and antidepressant medicine that just simply has not had an opportunity to become fully effective. I am optimistic about her recovery and her long-term stability as long as she continues to take the medication. TRANSINT:[id number] Voice Confirmation ID: [id number] DOCUMENT ID: [id number] SONNY GARCIA MD at 1045 CC: [id number] DICTATION DATE: 07/11/19 1200 CROSSCUTTER ROLLED GLASS: 07/11/19 1231 ADM IN [id number] [place] [address]
--- NOTE | 2019-07-12 12:22 | NUR ---
PT PACING THE DAYROOM AND DINING ROOM. PT IS CONFUSED AT TIMES. PT IS VERY ANXIOUS THIS MORNING. CALM AND COOPERATIVE WITH STAFF. MED COMPLIANT. REDIRECT AND REORIENT NEEDED. PT DENIES ANY SI AT THIS TIME. PT REPORTS " I AM DEPRESSED." WILL CPOC.
--- NOTE | 2019-07-12 18:36 | NUR ---
PT STATED TO TECH AFTER A PHONE CALL. "DONT WORRY. I DIDN'T SAY ANYTHING THAT WILL GET YALL INTO TROUBLE." TECH STATED WE ARE NOT WORRIED. WE ARE ONLY DOING OUR JOBS. PT THEN WALKED OFF. PT CONTS TO ASK THE SAME QUESTIONS.
--- NOTE | 2019-07-12 20:05 | NUR ---
RECEIVED IN DAYROOM. SITTING IN A CHAIR WITH PEERS AT HER SIDE. SOCIAL AT TIMES. CALM AND COOPERATIVE WITH CARE AND ASSESSMENT. NO STATEMENTS OF SELF HARM MADE THIS EVENING. ENCOURAGE TO EXPRESS NEEDS. COBNTINUE TO SIT WITH PEERS. CONTINUE PLAN OF CARE
[2019-07-12 20:16] VITALS: BP 125/75
[2019-07-13 08:15] VITALS: BP 144/86
--- NOTE | 2019-07-13 10:00 | NUR ---
RECEIVED PATIENT IN DINING ROOM AT B'FAST, ALERT, QUITE CONFUSED, NO SUICIDAL STATEMENTS NOTED. COMPLIANT WITH MEDS. FREQUENTLY PACES ABOUT UNIT. EXIT-SEEKING. COOPERATIVE WITH PLAN OF CARE. CONT POC.
--- NOTE | 2019-07-13 15:38 | PN ---
PATIENT:SERENE LAUGHLIN MEDICAL RECORD: [id number] LOCATION:[facility]AM Alexandra112 ADMISSION DATE: 07/07/19 PROGRESS NOTE DATE OF SERVICE: 07/12/2019 SUBJECTIVE: The patient's case was discussed with staff. She has no new complaint. OBJECTIVE: The patient is in good behavioral control. She is denying that she would seek to harm herself. She does wander about the unit great deal and apparently is quite anxious. ASSESSMENT: Major depression. PLAN: Current medicines have been reviewed and will be maintained. Long-term prognosis is guarded. TRANSINT:[id number] Voice Confirmation ID: [id number] DOCUMENT ID: [id number] SONNY GARCIA MD at 1538 CC: [id number] DICTATION DATE: 07/12/19 1214 CODING MANAGER: 07/12/19 1316 ADM IN [id number] [place] [address]
[2019-07-13 20:06] VITALS: BP 118/70
--- NOTE | 2019-07-13 21:12 | NUR ---
RECEIVED IN DAYROOM. WALKING AROUND TALKING TO PEERS. CALM AND COOPERATIVE WITH CARE AND ASSESSMENT. NO STATEMENTS OF SELF HARM MADE. REDIRECT AND REORIENT NEEDED. TRANSFERE TO BED AT THIS TIME. CONTINUE PLAN OF CARE
[2019-07-14 08:00] VITALS: BP 134/84
--- NOTE | 2019-07-14 10:12 | NUR ---
RECEIVED PATIENT IN DINING ROOM FOR B'FAST, ALERT, CALM, NO SUICIDAL IDEATIONS NOTED. MEDS ADMIN PER ORDERS WITH COMPLETE MED COMPLAINCE NOTED. COOPERATIVE WITH STAFF AND PLAN OF CARE. CONT POC DIRECTED.
--- NOTE | 2019-07-14 11:23 | PN ---
PATIENT:SERENE LAUGHLIN MEDICAL RECORD: [id number] LOCATION:PATELBeto MorrisLeah ADMISSION DATE: 07/07/19 PROGRESS NOTE DATE OF SERVICE: 07/13/2019 SUBJECTIVE: The patient's case was discussed with staff. She has no new complaint. OBJECTIVE: The patient is in good behavioral control with limited insight about her condition. She tolerates her medicines well. She still is quite anxious and is walking about a great deal. She has pretty limited insight about her situation. ASSESSMENT: Major depression. PLAN: The patient is going to be given a low dose of Xanax to assist with her anxiety. She will be monitored for clinical changes associated with its use. Her long-term prognosis is guarded. TRANSINT:[id number] Voice Confirmation ID: [id number] DOCUMENT ID: [id number] SONNY GARCIA MD at 1123 CC: [id number] DICTATION DATE: 07/13/19 170 NURSERY HAND: 07/13/19 2235 ADM IN [id number] [place] [address]
--- NOTE | 2019-07-14 19:43 | NUR ---
RECEIVED IN DAYROOM. SITTING IN A CHAIR WITH PEERS AT HER SIDE. SOCAILIZING AT TIMES. CALM AND COOPERATIVE WITH CARE AND ASSESSMENT. DENIES SELF HARM AT THIS TIME. ENCOURAGE TO EXPRESS NEEDS. CONTINUES TO SIT CALMLY IN CHAIR. CONTINUE PLAN OF CARE
[2019-07-14 20:09] VITALS: BP 127/79
[2019-07-15 08:26] VITALS: BP 127/79
--- NOTE | 2019-07-15 10:00 | NUR ---
RECEIVED PATIENT IN DINING ROOM FOR B'FAST, ALERT, CALM, COOPERATIVE, DENIES SUICIDAL IDEATIONS. MEDS ADMIN PER ORDERS WITH COMPLETE MED COMPLIANCE NOTED. COOPERATIVE WITH PLAN OF CARE, CONT POC DIRECTED.
--- NOTE | 2019-07-15 12:53 | PN ---
PATIENT:SERENE LAUGHLIN MEDICAL RECORD: [id number] LOCATION:PATELBeto Morris112 ADMISSION DATE: 07/07/19 PROGRESS NOTE DATE OF SERVICE: 07/14/2019 SUBJECTIVE: The patient's case was discussed with staff. She has no new complaint. OBJECTIVE: The patient denies intent to harm herself or others. She is calmer today. She is better focused today. ASSESSMENT: Major depressive episode. PLAN: Current medicines have been reviewed and will be maintained. I am encouraged by her improvement. It seems to be related to the use of the Xanax. TRANSINT:[id number] Voice Confirmation ID: [id number] DOCUMENT ID: [id number] SONNY GARCIA MD at 1253 CC: [id number] DICTATION DATE: 07/14/19 1135 ENTRY LEVEL LAB TECHNICIAN: 07/14/19 1140 ADM IN [facility] [address] [place] [address]
--- NOTE | 2019-07-15 18:40 | NUR ---
RECEIVED IN DAYROOM. SITTING IN A CHAIR WITH PEER BY HER SIDE. SOCIALIZING AT TIMES. CALM AND COOPERAITVE WITH CARE AND ASSESSMENT. ENCOURAGE TO EXPRESS NEEDS. NO STATEMENTS OF SELF HARM MADE THIS EVENING. CONTINUES TO SIT CALMLY IN DAYROOM. CONTINUE PLAN OF CARE
[2019-07-15 20:01] VITALS: BP 133/75
[2019-07-16 08:50] VITALS: BP 133/76
--- NOTE | 2019-07-16 10:59 | NUR ---
NUTRITION F/U PT TOLERATING REG DIET WITH 75 TO 100% INTAKE RECENT MEALS. SLIGHT WT DECREASE FROM ADMIT. +BM RECORDED 07/14/19. WILL CONTINUE TO PROVIDE CURRENT DIET, MONITOR PO INTAKE AND WT. RD FOLLOWING
--- NOTE | 2019-07-16 13:08 | NUR ---
REC'D PT SITTING IN DAY ROOM. SITTING IN CHAIR WATCHING PEERS. CALM AT THIS TIME. COOPERATIVE WITH CARE, ASSESSMENTS AND VITALS. ENCOURAGEMENT NEEDED AT TIMES. ABLE TO MAKE NEEDS KNOWN. NO BEHAVIORS NOTED AT THIS TIME. PT AMBULATES. WILL CONT PLAN OF CARE.
--- NOTE | 2019-07-16 15:01 | PN ---
PATIENT:SERENE LAUGHLIN MEDICAL RECORD: [id number] LOCATION:AIRAM Dutta ADMISSION DATE: 07/07/19 PROGRESS NOTE DATE OF SERVICE: 07/15/2019 SUBJECTIVE: The patient's case was discussed with staff. She has no new complaint. OBJECTIVE: The patient is in good behavioral control and has not been agitated today. She is clearly very impaired cognitively, but currently is tolerating her medicines well. ASSESSMENT: Major depression. PLAN: The patient's Xanax and Effexor will be consolidated to a twice daily dosing schedule. This is going to be done to assist with compliance once she leaves here. TRANSINT:[id number] Voice Confirmation ID: [id number] DOCUMENT ID: [id number] SONNY GARCIA MD at 1501 CC: [id number] DICTATION DATE: 07/15/19 1655 SOFTWARE ENGINEERING SUPERVISOR: 07/15/19 9867 ADM IN [id number] [place] [address]
[2019-07-16] MEDS ORDERED: PERPHENAZINE2 MG PO (15:46)
[2019-07-16] MEDS ORDERED: XANAX0.25 MG PO (15:46)
[2019-07-16] MEDS ORDERED: EFFEXOR100 MG PO (15:47)
[2019-07-16] MEDS ORDERED: VITAMIN B-121000 MCG PO (15:47)
[2019-07-16] MEDS ORDERED: PROTONIX40 MG PO (15:47)
[2019-07-16 20:20] VITALS: BP 113/70
--- NOTE | 2019-07-16 22:03 | NUR ---
REC'D IN THE DAYROOM SITTING WITH PEERS. SOCIAL WITH PEERS AND STAFF. ORIENTED X4. VERY PLEASANT. DENIES SI. ADMINISITER MEDS AND MONITOR COMPLIANCE. OBTAIN VERBAL NO HARM CONTRACT. MED COMPLIANT. CONTRACTS VERBALLY FOR NO SELF HARM. CONTINUE POC AND MAINTAIN SAFE ENVIRONMENT.
--- NOTE | 2019-07-17 07:33 | NUR ---
B) The patient is pleasant and calm, she has not shown any aggression. She ambulates independently. She has poor insight into her situation. I) Provide prescribed meds. R) The patient is compliant with meds. P) Continue POC.
[2019-07-17 09:39] VITALS: BP 130/71
--- NOTE | 2019-07-17 13:00 | NUR ---
The patient's daughter is here to take the patient home. The patient is packed and all paperwork was faxed to Dr. Ayon. The patient has an appointment 08/06/19 at 1100.
--- NOTE | 2019-07-17 14:51 | PN ---
PATIENT:SERENE LAUGHLIN MEDICAL RECORD: [id number] LOCATION:AIRAM Dutta ADMISSION DATE: 07/07/19 PROGRESS NOTE DATE OF SERVICE: 07/16/2019 SUBJECTIVE: The patient's case was discussed with staff. She has no new complaint. OBJECTIVE: The patient is tolerating her medicines well. She has limited insight about her situation. ASSESSMENT: Major depression. PLAN: The patient does not show evidence of acute or direct dangerousness and will be transitioned out of the hospital tomorrow. She is going to go home with her family. Followup will be with her primary care physician. Her depressive symptoms have significantly improved and I think if she is compliant with medications that her long-term prognosis is good. TRANSINT:[id number] Voice Confirmation ID: [id number] DOCUMENT ID: [id number] SONNY GARCIA MD at 1451 CC: [id number] DICTATION DATE: 07/16/19 1545 BOAT PATCHER PLASTIC: 07/16/19 1626 ADM IN [id number] [place] [address]
--- NOTE | 2019-07-18 08:02 | PN ---
PATIENT:SERENE LAUGHLIN MEDICAL RECORD: [id number] LOCATION:AIRAM Dutta ADMISSION DATE: 07/07/19 PROGRESS NOTE DATE OF SERVICE: 07/17/2019 SUBJECTIVE: The patient's case was discussed with staff. She has no new complaint. OBJECTIVE: The patient is in good behavioral control with very limited insight about her condition. She is depressed, but continues to think that she may not need the medications. I have emphasized the importance of medication compliance to her and she agrees that she will do a better job of taking them. ASSESSMENT: Major depression. PLAN: The patient is going to be transitioned home with her daughter today. There is no evidence of acute or direct dangerousness and she is to have followup with an outpatient psychiatrist and her primary care physician. TRANSINT:[id number] Voice Confirmation ID: [id number] DOCUMENT ID: [id number] SONNY GARCIA MD at 0802 CC: [id number] DICTATION DATE: 07/17/19 1512 AGRICULTURE SCIENTIST: 07/17/192103 DIS IN 07/17/19 [facility] [address] [place] [address]
--- NOTE | 2019-07-22 14:20 | DS ---
PATIENT:SERENE LAUGHLIN :39 MEDICAL RECORD: [id number] DISCHARGE SUMMARY ADMISSION DATE: 07/07/19 DISCHARGE DATE: 07/17/19 IDENTIFYING DATA: The patient is 84 years old and she was admitted to the hospital on a voluntary basis because of suicidal statements. On the day of admission, she had been to her primary care physician's office and told the staff there that she wanted to kill herself. She was sent to the Emergency Room, evaluated, made the same statements and indeed in the car with her daughter on the way to the Emergency Room, she wanted the daughter to stop the car so that she could get out and then she wanted the daughter to run her over. HOSPITAL COURSE: The patient was admitted to the hospital and fully evaluated from both a medical, psychological, and social standpoint. The patient was endorsing numerous neurovegetative depressive symptoms and immediately upon admission began minimizing or even denying that documented statements that were made in the primary care physician's office, by the daughter in the car on the way to the hospital, and in the Emergency Room. Furthermore, she told the charge nurse that at the time of her admission that she wanted to kill herself. Instead of explaining that, perhaps she was just distressed and said something that was hyperbolic, that she did not really mean, she was insisting that everyone was lying about her. She was not psychotic in my view. I do not think she is seriously depressed and she was treated with antidepressant medication and showed some improvement in her mood. She was denying thoughts of self-harm and was subsequently discharged home. DISCHARGE DIAGNOSES: Major depressive episode, severe, recurrent, without psychotic features. PLAN: The patient was referred to outpatient mental health treatment including an intensive outpatient program that provides counseling on a scheduled basis several afternoons a week. At the time of discharge, I do not think she was acutely dangerous to herself or others. There were concerns about her safety as she was hospitalized for depression a couple of years prior and at that time she was also psychotic. The patient's prognosis is guarded and will be largely contingent upon her following through with outpatient treatment recommendations, most importantly medication compliance. TRANSINT:[id number] Voice Confirmation ID: [id number] DOCUMENT ID: [id number] SONNY GARCIA MD at 3640 CC: [id number] DICTATION DATE: 07/21/19 1538 INDUSTRIAL RELATIONS WORKER: 07/22/19 0647 DIS IN 07/17/19 [facility] [address] [id number]
== END 2019-07-17 17:14 | disposition home or self-care (01) | DRG 751 ==
LOC: D.ER 09:32 → D.PSYCH 10:44
PROVIDERS: Family Medicine; ADMIT Psychiatry & Neurology Psychiatry; ATTEND Psychiatry & Neurology Psychiatry
DX: F33.2 Major depressive disorder, recurrent severe without psychotic features (principal); G30.1 Alzheimer's disease with late onset; F02.81 Dementia in other diseases classified elsewhere, unspecified severity, with behavioral disturbance; R45.851 Suicidal ideations; K21.9 Gastro-esophageal reflux disease without esophagitis; E78.5 Hyperlipidemia, unspecified; E88.09 Other disorders of plasma-protein metabolism, not elsewhere classified; E53.8 Deficiency of other specified B group vitamins

== ENCOUNTER 2020-01-02 20:14 | Inpatient (IN) | payer OTHER ==
[~2020-01-02] VITALS: Ht 157.5 cm; Wt 48.4 kg
[~2020-01-02 20:14] MED LIST changes: +ATARAX 25 MG TA25 MG; +ATARAX 25 MG TA25 MG PO; +EFFEXOR100 MG PO; +PERPHENAZINE2 MG PO; +PROTONIX40 MG PO; +VITAMIN B-121000 MCG PO; +XANAX0.25 MG PO
--- NOTE | 2020-01-02 20:34 | NUR ---
PT DAUGHTER STATES THAT PATIENT HAS WRITTEN MULTIPLE NOTES THAT MAKE HER THINK THAT PT IS GOING TO "RUN AWAY". PT DAUGHTER STATES THAT PATIENT IS SCARED, DUE TO THINKNIG THAT PEOPLE ARE OUT TO GET HER DUE TO "HER KILLING SOMEONE", WHICH DAUGHTER STATES IS FALSE, THAT PATIENT HAS NEVER KILLED ANYONE. DAUGHTER REPORTS THAT PT HAS BEEN HOSPITALIZED TWICE FOR SIMILAR SYMPTOMS.
--- NOTE | 2020-01-02 20:50 | NUR ---
PATIENT TO BATHROOM TO OBTAIN URINE SPECIMEN. ABLE TO FOLLOW INSTRUCTIONS AND PROVIDE URINE SPEC
[2020-01-02 20:56] LABS: BILIRUBIN NEGATIVE (NEGATIVE); GLUCOSE NEGATIVE (NEGATIVE); KETONE NEGATIVE (NEGATIVE); NITRITE NEGATIVE (NEGATIVE); UROBILINOGEN NORMAL (NORMAL)
[2020-01-02 20:57] LABS: BASOPHILS 0.5 % (0-2); EOSINOPHILS 4.9 % (0-7); HEMATOCRIT 42.5 % (36.0-48.0); HEMOGLOBIN 13.6 g/dL (12-16); IMMATURE GRANULOCYTES 0.2 % (0-5); LYMPHOCYTES 25.4 % (15-50); MCH 29.9 pg (26.0-34.0); MCV 93.4 fL (80.0-100.0); MEAN PLATELET VOLUME 10.1 fL (7.4-10.4); MONOCYTES 14.2 % (2-11); NEUTROPHILS 54.8 % (40-80); PLATELET COUNT 255 10x3/uL (130-400); RBC 4.55 10x6/uL (4.00-5.40); WBC 5.9 10x3/uL (4.8-10.8)
[2020-01-02 21:04] LABS: ANION GAP 12.7 mmol/L (8-16); BACTERIA MODERATE /hpf (NEGATIVE); CALCIUM 9.2 mg/dL (8.5-10.1); CARBON DIOXIDE 28.2 mmol/L (21.0-32.0); EPITHELIAL CELLS 0-5 /hpf (0-5); POTASSIUM - SERUM 3.9 mmol/L (3.5-5.1); RED CELLS - URINE 0-5 /hpf (0-5); WHITE CELLS - URINE 0-5 /hpf (NEGATIVE)
[2020-01-02 21:05] LABS: GRANULAR CAST OCC /lpf (NONE SEEN)
--- NOTE | 2020-01-02 21:15 | NUR ---
[facility] NOTIFIED TO ACCESS PATIENT FOR ADMISSION PER DR DUEÑAS REQUEST
[2020-01-02 21:19] LABS: ALBUMIN 3.4 g/dL (3.4-5.0); BILIRUBIN - TOTAL 0.39 mg/dL (0.2-1.3); PROTEIN - SERUM 7.8 g/dL (6.4-8.2)
--- NOTE | 2020-01-02 21:33 | NUR ---
SARAHI FROM CARE REQUEST CHART BE FAXED TO HER- DONE REQUESTED
[2020-01-02 23:42] VITALS: BP 128/61; BMI 19.7
--- NOTE | 2020-01-02 23:51 | NUR ---
PT ADMITS TO UNIT FROM [facility] ED. SHE IS CALM AND COOPERATIVE WITH STAFF. SHE IS HER OWN POA. HER DAUGHTER LINDA HAD HER BROUGHT IN FOR OBSERVATION STATING THAT "SHE IS HALLUCINATING PEOPLE ARE OUT TO GET HER AND SHE CAN HEAR THEM ON THE LOUD SPEAKER." DAUGHTER STATES SHE WAS HERE LATE LAST YEAR. SHE IS A FULL CODE AND HER CODE WORD IS 1376. SHE IS ABLE TO AMBULATE ON HER OWN WITHOUT ASSIST AND MAKE HER NEEDS KNOWN. SHE HAS TOP AND BOTTOM DENTURES ON HER PERSON AND A PAIR OF GLASSES. WILL CONTINUE TO MONITOR.
[2020-01-03 06:52] LABS: CHOL - HDL RATIO 3.7 ratio (2.3-4.1); LDL-HDL RATIO 2.5 ratio (1.5-3.5); THYROID STIMULATING HORMONE 2.41 uIU/mL (0.36-3.74)
--- NOTE | 2020-01-03 08:05 | NUR ---
The patient is awake and alert, she is pleasant and calm, she has poor insight into her situation, she knows her name and place, at this time she has not mentioned any hallucinations. She ambulates independently. Provide prescribed meds. Continue POC.
[2020-01-03 08:54] VITALS: BP 136/76
--- NOTE | 2020-01-03 19:21 | NUR ---
RECEIVED IN DINING ROOM AREA. CALM AND COOPERATIVE WITH CARE AND ASSESSMENT. NO SIGNS OF HALLUCINATIONS. REDIRECT AND REORIENT NEEDED. CONTINUES TO SIT QUIETLY IN DINING AREA. CONTINUE PLAN OF CARE.
[2020-01-03 20:00] VITALS: BP 133/65
[2020-01-04 08:29] VITALS: BP 130/80
--- NOTE | 2020-01-04 12:00 | NUR ---
RECEIVED IN HALLWAY OUTSIDE OF NURSES STATION. CALM AND COOPERATIVE WITH CARE AND ASSESSMENT. NO SIGNS OF HALLUCINATION. REDIRECT AND REORIENT NEEDED. EATING LUNCH AT THIS TIME. CONTINUE PLAN OF CARE.
[2020-01-04 12:56] VITALS: Ht 157.5 cm; Wt 48.4 kg
--- NOTE | 2020-01-04 20:00 | NUR ---
RECEIVED IN DAYROOM. SITTING IN A CHAIR WITH PEERS AT HER SIDE. CALM AND COOPERATIVE WITH CARE AND ASSESSMENT. NO SIGNS OF HALLUCINATIONS. REDIRECT AND REORIENT NEEDED. CONTINUES TO SIT CALMLY IN DAYROOM. CONTINUE PLAN OF CARE.
[2020-01-04 20:11] VITALS: BP 133/65
[2020-01-05 06:08] LABS: RAPID PLASMA REAGIN Non Reactive (Non Reactive)
[2020-01-05 08:47] VITALS: BP 143/91
--- NOTE | 2020-01-05 09:00 | NUR ---
RECEIVED IN HALLWAY OUTSIDE OF NURSES STATION. CALM AND COOPERATIVE WITH CARE AND ASSESSMENT. NO SIGNS OF HALLUCINATIONS. REDIRECT AND REORIENT NEEDED. EATING BREAKFAST AT THIS TIME. CONTINUE PLAN OF CARE.
--- NOTE | 2020-01-05 15:01 | PN ---
PATIENT:SERENE LAUGHLIN MEDICAL RECORD: [id number] LOCATION:PATELBeto MorrisLeah ADMISSION DATE: 01/02/20 PROGRESS NOTE DATE OF SERVICE: 01/04/2020 SUBJECTIVE: The patient's case was discussed with staff. She has no new complaint. OBJECTIVE: The patient has had some active auditory and visual hallucinations that have been observed, but now she is denying it. ASSESSMENT: Dementia. PLAN: The patient will be maintained on current medications. I am going to start her on a low dose of Namenda. Namenda is being used to treat her underlying cognitive impairment. She will be monitored for clinical changes associated with its use. TRANSINT:[id number] Voice Confirmation ID: [id number] DOCUMENT ID: [id number] SONNY GARCIA MD at 1501 CC: [id number] DICTATION DATE: 01/04/20 1645 DATABASE MARKETING MANAGER: 01/04/20 1715 ADM IN [id number] [place] [address]
--- NOTE | 2020-01-05 19:31 | NUR ---
RECEIVED IN DAYROOM. CALM AND COOPERATIVE WITH CARE AND ASSESSMENT. NO SIGNS OF HALLUCINATIONS. REDIRECT AND REORIENT NEEDED. CONTINUES TO SIT CALMLY IN DAYROOM. CONTINUE PLAN OF CARE.
[2020-01-05 20:22] VITALS: BP 141/84
[2020-01-06 09:10] VITALS: BP 127/60
--- NOTE | 2020-01-06 11:46 | PN ---
PATIENT:SERENE LAUGHLIN MEDICAL RECORD: [id number] LOCATION:AIRAM BeanNubiaLeah ADMISSION DATE: 01/02/20 PROGRESS NOTE DATE OF SERVICE: 01/05/2020 SUBJECTIVE: The patient's case was discussed with staff. She has no new complaint. OBJECTIVE: The patient is much calmer than she was yesterday. She is eating well. I have observed no psychotic symptoms today. ASSESSMENT: Dementia. PLAN: The patient has improved. I see no evidence of psychotic symptoms. She certainly is in need of 21-ahli-w-day supervision. TRANSINT:[id number] Voice Confirmation ID: [id number] DOCUMENT ID: [id number] SONNY GARCIA MD at 1146 CC: [id number] DICTATION DATE: 01/05/20 1640 CHEMISTRY ACCOUNT MANAGER: 01/05/20 2244 ADM IN [address] [place] [address]
--- NOTE | 2020-01-06 12:00 | NUR ---
RECEIVED IN HALLWAY OUTSIDE OF NURSES STATION. CALM AND COOPERATIVE WITH CARE AND ASSESSMENT. NO SIGNS OF HALLUCINATIONS. REDIRECT AND REORIENT NEEDED. EATING LUNCH AT THIS TIME. CONTINUE PLAN OF CARE.
[2020-01-06 20:00] VITALS: BP 122/64
--- NOTE | 2020-01-06 21:59 | NUR ---
B.) PT IS ALERT AND ORIENTED TO SELF AND SITUATION. SHE IS CALM AND COOPERATIVE WITH STAFF. SHE ADMITS TO HEARING THE ANGELS IN HER HEAD BUT STATES "ITS GETTING BETTER." SHE IS ABLE TO MAKE HER NEEDS KNOWN AND AMBULATE WITHOUT ASSIST. I.) PROVIDED PM MEDICATIONS PRESCRIBED. REDIRECT NEEDED. R.) COMPLIANT WITH ALL MEDICATIONS. EASY TO REDIRECT. P.) COMPLIANT WITH ALL MEDICATIONS.
--- NOTE | 2020-01-07 08:48 | NUR ---
Nutrition Follow-up: Overall good PO intake. Diet: Regular PO intake: 88% avg x last 9 meals (01/03-01/05) Wt: 105.2# (01/03); 107.8# (01/01) No BMs recorded No new labs Meds noted: vitamin B12, Protonix -Encourage PO intake and honor food preferences. -Monitor wt. -RD following.
[2020-01-07 09:08] VITALS: BP 120/78
--- NOTE | 2020-01-07 10:31 | NUR ---
PT SITTING IN CHAIR WITH EYES OPEN. NO ACUTE DISTRESS NOTED. PT IS ORIENTED TO PERSON, PLACE AND TIME. PT DOES ADMIT TO HEARING THINGS BUT NOT BAD BEFORE. SHE SAID IT'S GOOD AND BAD. PT IS VERY FRIENDLY WITH STAFF AND PEERS. PT IS COMPLIANT WITH MEDS, VITALS AND ASSESSMENTS. WILL CONT PLAN OF CARE.
--- NOTE | 2020-01-07 15:37 | PN ---
PATIENT:SERENE LAUGHLIN MEDICAL RECORD: [id number] LOCATION:AIRAM BeanNubiaLeah ADMISSION DATE: 01/02/20 PROGRESS NOTE DATE OF SERVICE: 01/05/2020 SUBJECTIVE: The patient's case was discussed with staff. She has no new complaint. OBJECTIVE: The patient is in good behavioral control, but quite confused. ASSESSMENT: Dementia. PLAN: The patient is receiving her medications and they seem to be effective. There is a good reason to suspect that she was not taking them consistently at home. TRANSINT:[id number] Voice Confirmation ID: [id number] DOCUMENT ID: [id number] SONNY GARCIA MD at 1537 CC: [id number] DICTATION DATE: 01/06/20 1151 WELDING MACHINE OPERATOR: 01/06/20 1231 ADM IN [id number] [place] [address]
[2020-01-07] MEDS ORDERED: NAMENDA5 MG PO (17:04)
[2020-01-07 20:36] VITALS: BP 112/69
--- NOTE | 2020-01-08 03:24 | NUR ---
B)RECEIVED PATIENT SITTING IN THE DAYROOM. ORIENTED AND PLEASANT. PATIENT RELATES TO STAFF THAT SHE HAS BEEN HERE BEFORE. RELATES THE REASON FOR HOSPITALIZATION IS "GET MY MEDICATIONS STRAIGHTENED OUT." I)ADMINISTER MEDS AND MONITOR COMPLIANCE. R)MED COMPLIANT. COOPERATIVE WITH UNIT MEGHAN. P)CONTINUE POC AND PROVIDE SAFE ENVIRONMENT.
[2020-01-08 10:09] VITALS: BP 133/71
--- NOTE | 2020-01-08 12:25 | NUR ---
The patient is pleasant and calm, she has not made any mention of hallucinations or paranoia today. She ambulates independently. Provide prescribed meds. The patient is compliant with meds. She knows she is being discharge today and she is ok with it. Spoke to her daughter and the daughter has concerns. Explained to her to give a chance and if she feels it isn't right or if her mom is not satisfied she can look at other places. The patient's daughter said "Thank you." She felt better. Continue POC.
--- NOTE | 2020-01-08 13:16 | NUR ---
PT DISCHARGED WITH [facility] THIS SHIFT. PT DAUGHTER MET HER WITH CLOTHES AND TO MAJOR ASSEMBLY INSPECTOR HER MEDICATIONS. PT IN SMILING AND EXCITIED TO SEE HER DAUGHTER. PAPERWORK FAXED TO DR. MARTIN OFFICE AND SENT WITH PT. NURSE EXPLAINED TO EVETTE PAPERWORK, DOCTOR APPT AND MEDICATIONS. SHE VERABLIZIED UNDERSTANDING. PT AMBULATED TO CAR WITH DAUGHTER AND EVETTE.
--- NOTE | 2020-01-08 15:48 | PN ---
PATIENT:SERENE LAUGHLIN MEDICAL RECORD: [id number] LOCATION:AIRAM Dutta ADMISSION DATE: 01/02/20 PROGRESS NOTE DATE OF SERVICE: 01/07/2020 SUBJECTIVE: The patient's case was discussed with staff. She has no new complaint. OBJECTIVE: The patient denies intent to harm herself or others. She has been confused, but cooperative. ASSESSMENT: Dementia. PLAN: The patient will be transitioned out of the hospital tomorrow. She is going to go to a private half-way. Her long-term prognosis is guarded. TRANSINT:[id number] Voice Confirmation ID: [id number] DOCUMENT ID: [id number] SONNY GARCIA MD at 1548 CC: [id number] DICTATION DATE: 01/07/201702 LITIGATION COORDINATOR: 01/07/20 1715 DIS IN 01/08/20 [address] [place] [address]
== END 2020-01-08 13:23 | disposition home or self-care (01) | DRG 57 ==
LOC: D.ER 20:14 → D.PSYCH 22:30
PROVIDERS: Emergency Medicine; ADMIT Psychiatry & Neurology Psychiatry; ATTEND Psychiatry & Neurology Psychiatry
DX: G30.1 Alzheimer's disease with late onset (principal); F02.81 Dementia in other diseases classified elsewhere, unspecified severity, with behavioral disturbance; F33.3 Major depressive disorder, recurrent, severe with psychotic symptoms; E78.5 Hyperlipidemia, unspecified; E55.9 Vitamin D deficiency, unspecified; K21.9 Gastro-esophageal reflux disease without esophagitis

== ENCOUNTER 2020-02-10 12:25 | Inpatient (IN) | payer OTHER ==
[~2020-02-10] VITALS: Ht 157.5 cm; Wt 51.7 kg
[2020-02-10] VITALS (7 sets, daily range): BP systolic 153–200; BP diastolic 86–110
[2020-02-10 14:23] LABS: BASOPHILS 0.1 % (0-2); EOSINOPHILS 1.3 % (0-7); HEMOGLOBIN 14.3 g/dL (12-16); IMMATURE GRANULOCYTES 0.3 % (0-5); LYMPHOCYTES 6.4 % (15-50); MCH 29.6 pg (26.0-34.0); MCHC 32.5 g/dL (31.0-37.0); MCV 91.1 fL (80.0-100.0); MEAN PLATELET VOLUME 9.7 fL (7.4-10.4); MONOCYTES 5.3 % (2-11); NEUTROPHILS 86.6 % (40-80); PLATELET COUNT 260 10x3/uL (130-400); RBC 4.83 10x6/uL (4.00-5.40); RDW 13.7 % (11.5-14.5)
[2020-02-10 14:26] LABS: ANION GAP 11.8 mmol/L (8-16); CALCIUM 9.1 mg/dL (8.5-10.1); CARBON DIOXIDE 27.3 mmol/L (21.0-32.0); CREATININE - SERUM 0.8 mg/dL (0.6-1.3); POTASSIUM - SERUM 4.1 mmol/L (3.5-5.1)
[2020-02-10 14:33] LABS: ALBUMIN 3.3 g/dL (3.4-5.0); BILIRUBIN - TOTAL 0.3 mg/dL (0.2-1.3); PROTEIN - SERUM 7.7 g/dL (6.4-8.2)
[2020-02-10 14:41] LABS: APTT 28.3 SECONDS (22.8-39.4); INR 0.95 (0.85-1.17); PROTIME 12.6 SECONDS (11.6-15.0)
[2020-02-10 17:09] LABS: BILIRUBIN NEGATIVE (NEGATIVE); GLUCOSE NEGATIVE (NEGATIVE); KETONE NEGATIVE (NEGATIVE); NITRITE NEGATIVE (NEGATIVE); UROBILINOGEN NORMAL (NORMAL)
--- NOTE | 2020-02-10 18:12 | MORECARE ---
CASE MANAGEMENT DISCHARGE SUMMARY PATIENT: SERENE LAUGHLIN UNIT: [id number] ADM DATE: 02/10/20 AGE: 84 : 37 SEX: F ROOM/BED: D.1212 AUTHOR: PEPPER PEACOCK PHYSICIAN: REFERRING PHYSICIAN: PRAVIN JACOBO MD DATE OF SERVICE: 02/10/20 Discharge Plan Patient Name: SERENE LAUGHLIN Facility: [facility]:[place] : 1935 Planned Disposition: Anticipated Discharge Date: Discharge Date: Expected LOS: Initial Reviewer: [email or web address] Initial Review Date: 02/10/2020 Generated: 02/10/20 7:11 pm Patient Name: SERENE LAUGHLIN Page [phone] at 1812 All edits/amendments must be made on the electronic document DICTATION DATE: 02/10/201810 SCHOOL GUARD: PRISCA 02/10/201810 RPT#: [id number] VT DATE: STATUS: ADM IN [facility] [address] [place] [address] END OF REPORT
[2020-02-10] MEDS ORDERED: COLACE100 MG PO (18:17)
--- NOTE | 2020-02-10 18:18 | NUR ---
RECEIVED TO ROOM 1212 VIA STRETCHER FROM ER. A/O X3. DAUGHTER AT BEDSIDE. SKIN INTACT WITHOUT REDNESS. DENIES NEEDS. SWANSON PATENT WITH CLEAR YELLOW URINE.
--- NOTE | 2020-02-10 20:00 | NUR ---
ALERT RESTING IN BED, DENIES PAIN OR NEEDS AT THIS TIME, DAUGHTER AT BEDSIDE, SPOKE WITH GEAR GRINDER PERMISION GIVEN FOR DAUGHTER TO STAY, SEE ASSESSMENT, CALL TERESA YA
[2020-02-11] VITALS (10 sets, daily range): BP systolic 117–163; BP diastolic 59–97; BMI 20.9
--- NOTE | 2020-02-11 06:03 | NUR ---
MORPHINE GIVEN ORDERED PRIOR TO CHG BATH AND LINEN CHANGE, HAS RING ON RIGHT HAND DAUGHTER UNABLE TO REMOVE
[2020-02-11 06:12] LABS: BASOPHILS 0.1 % (0-2); EOSINOPHILS 1.2 % (0-7); HEMATOCRIT 43.4 % (36.0-48.0); HEMOGLOBIN 14.1 g/dL (12-16); IMMATURE GRANULOCYTES 0.2 % (0-5); LYMPHOCYTES 10.2 % (15-50); MCH 29.6 pg (26.0-34.0); MCHC 32.5 g/dL (31.0-37.0); MEAN PLATELET VOLUME 9.7 fL (7.4-10.4); MONOCYTES 9.1 % (2-11); NEUTROPHILS 79.2 % (40-80); PLATELET COUNT 240 10x3/uL (130-400); RBC 4.77 10x6/uL (4.00-5.40); RDW 13.6 % (11.5-14.5)
[2020-02-11 06:52] LABS: ANION GAP 11.1 mmol/L (8-16); BILIRUBIN - TOTAL 0.61 mg/dL (0.2-1.3); CALCIUM 8.7 mg/dL (8.5-10.1); CARBON DIOXIDE 25.1 mmol/L (21.0-32.0); CREATININE - SERUM 0.8 mg/dL (0.6-1.3); POTASSIUM - SERUM 4.2 mmol/L (3.5-5.1); PROTEIN - SERUM 6.9 g/dL (6.4-8.2)
[2020-02-11 06:55] LABS: WBC 8.9 10x3/uL (4.8-10.8)
--- NOTE | 2020-02-11 07:30 | NUR ---
AWAKE AND ALERT. ORIENTED X3. NO C/O AT THIS TIME. LUNGS ARE CLEAR BILATERALLY, NO COUGH NOTED. SKIN IS INTACT WITHOUT REDNESS. SWANSON PATENT WITH CLEAR YELLOW URINE. IV TO RIGHT FOREARM IS PATENT WITHOUT REDNESS AT INSERTION SITE. DENIES NEEDS. DAUGHTER AT BEDSIDE.
--- NOTE | 2020-02-11 10:00 | NUR ---
REPOSITIONED IN BED FOR COMFORT ON LEFT SIDE. REQUESTED AND GIVEN 2MG MORPHINE SLOW IVP FOR C/O RIGHT HIP PAIN LEVEL 10. WILL MONITOR. DAUGHTER AT BEDSIDE.
--- NOTE | 2020-02-11 12:00 | NUR ---
NO CHANGES AT THIS TIME. DENIES NEEDS.
--- NOTE | 2020-02-11 13:14 | NUR ---
OFF UNIT VIA BED TO SURGERY. DAUGHTER AT BEDSIDE.
--- NOTE | 2020-02-11 16:03 | NUR ---
RETURNED FROM SURGERY. DAUGHTER AT BEDSIDE. DRESSING TO RIGHT HIP IS DRY AND INTACT.
--- NOTE | 2020-02-11 18:31 | NUR ---
ATE A FEW BITES OF SUPPER. DENIES NEEDS. NO CHANGES NOTED.
--- NOTE | 2020-02-11 20:00 | NUR ---
RESTING IN BED ALERT, DENIES PAIN OR NEEDS, DAUGHTER AT BEDSIDE, INSTRUCTED TO CALL FOR PAIN MEDICATION IF STARTED TO HAVE PAIN IN HIP, SEE SHIFT ASSESSMENT, DRESSING TO RIGHT HIP C/D/I, CALL LIGHT IN REACH
[2020-02-12 04:34] VITALS: BP 130/61
[2020-02-12 05:52] LABS: BASOPHILS 0.1 % (0-2); EOSINOPHILS 0.2 % (0-7); HEMATOCRIT 36.1 % (36.0-48.0); HEMOGLOBIN 11.6 g/dL (12-16); IMMATURE GRANULOCYTES 0.2 % (0-5); LYMPHOCYTES 10.6 % (15-50); MCH 29.1 pg (26.0-34.0); MCHC 32.1 g/dL (31.0-37.0); MCV 90.7 fL (80.0-100.0); MONOCYTES 12.1 % (2-11); NEUTROPHILS 76.8 % (40-80); PLATELET COUNT 252 10x3/uL (130-400); RBC 3.98 10x6/uL (4.00-5.40); RDW 13.6 % (11.5-14.5)
[2020-02-12 06:02] LABS: WBC 11.8 10x3/uL (4.8-10.8)
[2020-02-12 06:12] LABS: ANION GAP 12.2 mmol/L (8-16); CALCIUM 8.3 mg/dL (8.5-10.1); CARBON DIOXIDE 23.8 mmol/L (21.0-32.0); CREATININE - SERUM 0.9 mg/dL (0.6-1.3); MAGNESIUM - SERUM 1.8 mg/dL (1.8-2.4)
[2020-02-12 08:00] VITALS: BP 138/71
--- NOTE | 2020-02-12 08:59 | NUR ---
PT SITTING UP IN BED EATING BREAKFAST. DAUGHTER AT BEDSIDE. RESP EVEN AND UNLABORED. O2 @ 3L NC IN PLACE. DENIES PAIN AT THIS TIME. IV TO LEFT WRIST WITH NS @ 75ML/HR INFUSING VIA PUMP. SITE WITHOUT REDNESS OR EDEMA. DRESSING C/D/I TO RIGHT HIP. F/C PATENT TO GRAVITY. DENIES FURTHER NEEDS AT THIS TIME. CL WITHIN REACH. ENCOURAGED TO CALL WITH NEEDS.
[2020-02-12 11:50] VITALS: BP 125/72
--- NOTE | 2020-02-12 12:34 | NUR ---
REHAB PRESCREENING Rehab referral received and chart reviewed. This patient has [employer] as her insurance provider which requires prior authorization. She does have PT and OT ordered. Rehab will continue to follow this patient for evaluations in order to assess admission criteria. Thank you for this referral! Tatiana Fontenot, DIETETIC AIDE Rehab PD
--- NOTE | 2020-02-12 14:34 | MORECARE ---
CASE MANAGEMENT DISCHARGE SUMMARY PATIENT: SERENE LAUGHLIN UNIT: [id number] ADM DATE: 02/10/20 AGE: 84 : 37 SEX: F ROOM/BED: D.1212 AUTHOR: PEPPER PEACOCK PHYSICIAN: REFERRING PHYSICIAN: PRAVIN JACOBO MD DATE OF SERVICE: 02/12/20 Discharge Plan Patient Name: SERENE LAUGHLIN Facility: [facility]:[place] : 1935 Planned Disposition: Inpatient Rehab Anticipated Discharge Date: 02/14/20 Discharge Date: Expected LOS: 4 Initial Reviewer: [email or web address] Initial Review Date: 02/10/2020 Generated: 02/12/20 3:33 pm Coverage Notice Reviewer: [id number] Isra Huber Notice Issued Date-Time: 02/12/2020 12:46 Notice Type: IM Discharge Notice Notice Delivered To: Family Member Relationship to Patient: Daughter Tile [employer] Mottle Supervisor Name: MARTÍN BARTON Delivery Method: HAND - Hand Delivered Samaria Days: Prior Verbal Notification: Recipient Understood Notice: Yes Recipient Signature: Yes Med Rec Note Co-signed by Attending: Coverage Notice Comment: DC IMM SIGNED/PROVIDED TO DAUGHTER. COPY TO CHART. Reviewer: [email or web address] Isra Huber Notice Issued Date-Time: 02/12/2020 13:24 Notice Type: Patient Choice Letter Notice Delivered To: Family Member Relationship to Patient: Daughter [employer] Supervisor Name: Martín Thompson Delivery Method: HAND - Hand Delivered Samaria Days: Prior Verbal Notification: Recipient Understood Notice: Yes Recipient Signature: Yes Med Rec Note Co-signed by Attending: Coverage Notice Comment: Patient choice for [facility] signed by daughter. Original to chart. Last DP export: 02/10/20 5:12 p Patient Name: SERENE LAUGHLIN Page [phone] at 1434 All edits/amendments must be made on the electronic document DICTATION DATE: 02/12/201432 SUPERVISORY TRAINING SPECIALIST: PRISCA 02/12/20 143 RPT#: [id number] DC DATE: STATUS: ADM IN [facility] [address] [place] [address] END OF REPORT
[2020-02-12 15:00] VITALS: BP 139/76
--- NOTE | 2020-02-12 15:15 | NUR ---
TOOK VITALS ON PT. VSS. PT ORIENTED TO SITUATION. FOLLOWS COMMANDS. DAUGHTER AT BEDSIDE. NO COMPLAINTS OR NEEDS AT THIS TIME. WILL CONTINUE TO MONITOR.
--- NOTE | 2020-02-12 16:56 | MORECARE ---
CASE MANAGEMENT DISCHARGE SUMMARY PATIENT: SERENE LAUGHLIN UNIT: [id number] ADM DATE: 02/10/20 AGE: 84 : 37 SEX: F ROOM/BED: D.1212 AUTHOR: PEPPER PEACOCK PHYSICIAN: REFERRING PHYSICIAN: PRAVIN JACOBO MD DATE OF SERVICE: 02/12/20 Discharge Plan Patient Name: SERENE LAUGHLIN Facility: [facility]:[place] : 1935 Planned Disposition: Inpatient Rehab Anticipated Discharge Date: 02/14/20 Discharge Date: Expected LOS: 4 Initial Reviewer: [id number] Initial Review Date: 02/10/2020 Generated: 02/12/20 5:55 pm Coverage Notice Reviewer: [id number] Isra Huber Notice Issued Date-Time: 02/12/2020 12:46 Notice Type: IM Discharge Notice Notice Delivered To: Family Member Relationship to Patient: Daughter Textile Technical Officer Name: MARTÍN BARTON Delivery Method: HAND - Hand Delivered Samaria Days: Prior Verbal Notification: Recipient Understood Notice: Yes Recipient Signature: Yes Med Rec Note Co-signed by Attending: Coverage Notice Comment: DC IMM SIGNED/PROVIDED TO DAUGHTER. COPY TO CHART. Reviewer: [id number] Isra Huber Notice Issued Date-Time: 02/12/2020 13:24 Notice Type: Patient Choice Letter Notice Delivered To: Family Member Relationship to Patient: Daughter Textile Technical Officer Name: Martín Thompson Delivery Method: HAND - Hand Delivered Samaria Days: Prior Verbal Notification: Recipient Understood Notice: Yes Recipient Signature: Yes Med Rec Note Co-signed by Attending: Coverage Notice Comment: Patient choice for [facility] signed by daughter. Original to chart. Last DP export: 02/12/20 1:34 p Patient Name: SERENE LAUGHLIN Page [phone] at 1656 All edits/amendments must be made on the electronic document DICTATION DATE: 02/12/201655 TURRET PRESS OPERATOR: PRISCA 02/12/201655 RPT#: [id number] DC DATE: STATUS: ADM IN [facility] [address] [place] [address] END OF REPORT
--- NOTE | 2020-02-12 16:57 | NUR ---
OT NOTE: PT EXHIBITED RIGHT SIDE LATERAL LEAN OF HEAD IN SUPINE. PT EXHIBITED DECREASED L SHOULDER AROM AND NO L HAND AROM. PT REQUIRED MAX A WITH POSITIONING. PT REQUIRED MIN A WITH FACE HYGIENE USING RUE. SPOKE WITH NURSING REGARDING DECREASED AROM OF LUE . [phone] THANK YOU,ZARIE CASTAÑEDA
[2020-02-12 20:00] VITALS: BP 133/67
--- NOTE | 2020-02-12 20:00 | NUR ---
PT SITTING UP IN BED WITHOUT DISTRESS, DAUGHTER AT BEDSIDE. PT ANSWERS YES OR NO QUESTIONS. STATES NO WHEN ASKED IF SHE IS IN PAIN. SAT PT UP TO TAKE HS MEDS. TOOK MEDS WITHOUT DIFFICULTY. DAUGHTER EXPRESSED CONCERN ABOUT PT WEAKNESS. [facility] DOCTOR WAS MADE AWARE OF CONCERNS BY BOTH HER, DAUGHTER AND PT/OT. ASKED PT IF SHE COULD SMILE FOR ME AND SHE STATES YES BUT DID NOT SMILE. ASKED PT TO SQUEEZE MY HANDS AND SHE DID NOT SQUEEZE EITHER. DID NOT FOLLOW COMMANDS TO MOVE FEET. PT LEANING TO RIGHT SIDE. REPOSITIONED PT TO SIT UP STRAIGHTER. WHILE DOING SO PT GASPED IN PAIN AND MOVED BODY HERSELF SLIGHTLY BUT WHEN ASKED AFTER MOVEMENT IF SHE IS OK SHE STATES YES AND AGAIN STATES NO PAIN WHEN ASKED. WILL CTM
--- NOTE | 2020-02-12 21:00 | NUR ---
PT GIVEN BATH AT THIS TIME. TOLERATED WELL
[2020-02-13] VITALS: BP 132/77
[2020-02-13 04:30] VITALS: BP 150/84
[2020-02-13 06:11] LABS: BASOPHILS 0.2 % (0-2); EOSINOPHILS 0.8 % (0-7); HEMATOCRIT 30.8 % (36.0-48.0); HEMOGLOBIN 9.7 g/dL (12-16); IMMATURE GRANULOCYTES 0.4 % (0-5); MCH 28.8 pg (26.0-34.0); MCHC 31.5 g/dL (31.0-37.0); MCV 91.4 fL (80.0-100.0); MEAN PLATELET VOLUME 9.7 fL (7.4-10.4); MONOCYTES 13.9 % (2-11); NEUTROPHILS 73.7 % (40-80); PLATELET COUNT 222 10x3/uL (130-400); RBC 3.37 10x6/uL (4.00-5.40); RDW 13.9 % (11.5-14.5)
[2020-02-13 06:16] LABS: WBC 8.4 10x3/uL (4.8-10.8)
[2020-02-13 06:47] LABS: ANION GAP 11.5 mmol/L (8-16); CALCIUM 8.2 mg/dL (8.5-10.1); CARBON DIOXIDE 24.4 mmol/L (21.0-32.0); CREATININE - SERUM 0.8 mg/dL (0.6-1.3); MAGNESIUM - SERUM 1.7 mg/dL (1.8-2.4); POTASSIUM - SERUM 3.9 mmol/L (3.5-5.1)
--- NOTE | 2020-02-13 07:45 | NUR ---
PT RESTING QUIETLY IN BED. O2 @ 3LNC IN PLACE. RESP EVEN AND UNLABORED. PT DENIES PAIN AT THIS TIME. IV TO LEFT WRIST WITH NS @ 75ML/HR INFUSING VIA PUMP. SITE WITHOUT REDNESS OR EDEMA. DRESSING TO RIGHT HIP INTACT. F/C PATENT TO GRAVITY DRAINING YELLOW URINE. DENIES FURTHER NEEDS AT THIS TIME. CL WITHIN REACH. ENCOURAGED TO CALL WITH NEEDS. DAUGHTER AT BEDSIDE. CONTINUE POC
[2020-02-13 08:43] VITALS: BP 160/82
--- NOTE | 2020-02-13 09:12 | NUR ---
ADMINISTERED MORNING MEDICATION, NO DIFFICULTY. PT UPRIGHT IN BED EATING BREAKFAST. FAMILY AT BEDSIDE. DENIES ANY NEEDS AT THIS TIME.
--- NOTE | 2020-02-13 10:40 | NUR ---
PT UP IN CHAIR AT BEDSIDE VIA PT. DENIES NEEDS AT THIS TIME. CL WITHIN REACH. ENCOURAGED TO CALL WITH NEEDS.
[2020-02-13 11:55] VITALS: BP 117/60
--- NOTE | 2020-02-13 12:58 | NUR ---
PT SITTING UP IN BED. NO ACUTE DISTRESS NOTED AT THIS TIME. DENIES PAIN OR FURTHER NEEDS. CL WITHIN REACH. ENCOURAGED TO CALL WITH NEEDS.
--- NOTE | 2020-02-13 14:34 | NUR ---
rehab prescreen: pt would make a good canidate for irf if she continues to progress, she has [employer] insurance and will need a prior auth to be able to transfer to rehab. will monitor til prior auth is obtained. thank you for this eval. chris pena lpn clinical liasion
--- NOTE | 2020-02-13 14:45 | NUR ---
PT SITTING UP IN BED WITH FAMILY AT BEDSIDE. NO ACUTE DISTRESS NOTED. DENIES NEEDS AT THIS TIME. CL WITHIN REACH. ENCOURAGED TO CALL WITH NEEDS.
--- NOTE | 2020-02-13 15:30 | NUR ---
PT F/C DISCONTINUED PER MD ORDERS. 10ML SALINE REMOVED FROM BULB. BULB INTACT. PT CHER WELL
[2020-02-13 16:00] VITALS: BP 133/76
--- NOTE | 2020-02-13 17:38 | NUR ---
PT SITTING UP IN BED WITH DAUGHTER AT BEDSIDE, REQUIRES MUCH ENCOURAGEMENT TO CONSUME MEAL. PT DENIES PAIN AT THIS TIME. ENCOURAGED TO CALL WITH NEEDS.
[2020-02-13 19:42] VITALS: BP 145/68
--- NOTE | 2020-02-13 19:42 | NUR ---
PATIENT RESTING IN BED WITH NO S/S OF DISTRESS. VSS. PATIENT DENIES NEEDS AT THIS TIME. BED IN LOWEST POSITION AND CALL LIGHT WITHIN REACH. BED ALARM ON. ENCOURAGED THE PATIENT TO CALL IF SHE HAS NEEDS. WILL CONTINUE TO MONITOR.
--- NOTE | 2020-02-13 20:57 | NUR ---
ADMINISTERED MEDS PER ORDERS. PATIENT DENIES OTHER NEEDS AT THIS TIME. REPOSITIONED PATIENT IN BED. WILL CONTINUE TO MONITOR.
--- NOTE | 2020-02-13 22:59 | NUR ---
PATIENT VOIDED APROX 150ML
[2020-02-14 00:14] VITALS: BP 137/81
[2020-02-14 05:26] VITALS: BP 158/77
[2020-02-14 06:18] LABS: BASOPHILS 0.2 % (0-2); EOSINOPHILS 1.5 % (0-7); HEMATOCRIT 30.2 % (36.0-48.0); HEMOGLOBIN 9.6 g/dL (12-16); IMMATURE GRANULOCYTES 0.2 % (0-5); LYMPHOCYTES 13.1 % (15-50); MCH 29.4 pg (26.0-34.0); MCHC 31.8 g/dL (31.0-37.0); MCV 92.4 fL (80.0-100.0); MEAN PLATELET VOLUME 9.6 fL (7.4-10.4); PLATELET COUNT 235 10x3/uL (130-400); RBC 3.27 10x6/uL (4.00-5.40); WBC 8.9 10x3/uL (4.8-10.8)
[2020-02-14 07:04] LABS: CALC OSMOLALITY 270 mosm/kg (275-300); CALCIUM 8.2 mg/dL (8.5-10.1); CARBON DIOXIDE 24.5 mmol/L (21.0-32.0); CHLORIDE - SERUM 103 mmol/L (98-107); CREATININE - SERUM 0.7 mg/dL (0.6-1.3); GLUCOSE 94 mg/dL (74-106); MAGNESIUM - SERUM 1.9 mg/dL (1.8-2.4); POTASSIUM - SERUM 3.8 mmol/L (3.5-5.1); SODIUM 135 mmol/L (136-145); UREA NITROGEN 14 mg/dL (7-18); eGFR NON AFRICAN AMERICAN 85 mL/min (90-120)
[2020-02-14 07:42] VITALS: BP 159/85
--- NOTE | 2020-02-14 09:45 | NUR ---
PT ALERT X 3, DISORIENTED TO TIME. BREATH SOUNDS CLEAR BILAT. TELEMETRY IN PLACE. IV TO LEFT WRIST, PATENT, DRESSING CDI. DRESSING TO RIGHT HIP CDI. SCD'S IN USE. PT REPORTING NO PAIN AT THIS TIME. BED LOW, CALL LIGHT IN REACH. NO OTHER NEEDS AT THIS TIME.
--- NOTE | 2020-02-14 09:56 | EC ---
PATIENT:SERENE LAUGHLIN DATE OF SERVICE: 02/10/20 SEX: F MEDICAL RECORD: [id number] DATE OF : 39 LOCATION:D.M3 D.121 AGE OF PATIENT: 84 ADMISSION DATE: 02/10/20 REFERRING PHYSICIAN: INTERPRETING PHYSICIAN: CHRISTINE BARKER MD ECHOCARDIOGRAM REPORT ECHO CHARGES 5 ECHO LIMITED Date: 02/13/20 CLINICAL DIAGNOSIS: ARRHYTHMIA RECENT BROKEN HIP ECHOCARDIOGRAPHIC MEASUREMENTS (adult normal given) AC root (d.<3.7cm) cm LV Septum d (<1.2 cm> cm Valve Excursion cm LV Septum (systole) cm Left Atria (s.<4.0cm> 4.3 cm LVPW d(<1.2cm) cm RV (d.<2.3cm) cm LVPW (sytole) cm LV diastole(<5.6CM) cm MV E-F(>70mm/sec) cm LV systole cm LVOT Diameter 1.5 cm MV exc.(>10mm) cm Est.ejection fraction (50-75%) % DOPPLER: LVIT cm/sec A 33.0 cm/sec E 139.0 cm/sec LA cm/sec RVSP 28 mmHg LVOT cm/sec AOP1/2T m/s Asc. Ao 134 cm/sec RVOT cm/sec RA cm/sec PA cm/sec AV Gradient Peak 7.25 mmHg AV Mean 4.29 mmHg AV Area 1.7 cm MV Gradient Peak 8.83 mmHg MV Mean 3.00 mmHg MV Area cm COMMENTS: Elevator Conductor: 2 STU STEWART Tax Intern: 4 Dr. Barker TAPE# PACS Pericardial Effusion N DATE OF SERVICE: PROCEDURE: Transthoracic echocardiogram. FINDINGS: The patient has hyperdynamic LV systolic function. Ejection fraction 65% to 70%. Left atrium is normal size and function. ECHOCARDIOGRAM REPORT [id number] SERENE LAUGHLIN Aortic valve appears to be normal structurally and functionally. There is some thickening around the aortic valve leaflets. Mitral valve normal structure and function without significant regurgitation. Tricuspid valve has mild tricuspid regurgitation. No evidence of significant elevation in the right ventricular systolic pressures. The right ventricle is mildly dilated. The right atrium is normal size, structure and function. Pulmonic valve is normal. IMPRESSION: The patient with evidence of hyperdynamic left ventricular systolic function, no evidence of significant wall motion abnormalities, masses or thrombus. TRANSINT:[id number] Voice Confirmation ID: [id number] DOCUMENT ID: [id number] CHRISTINE BARKER MD at 0956 CC: [id number] DICTATION DATE: 02/13/20 1255 DIRECTOR BUILDING: 02/13/20 1528 ADM IN [facility] [address] [place] [address]
[2020-02-14 11:00] VITALS: BP 134/70
[2020-02-14 19:21] VITALS: BP 125/62
--- NOTE | 2020-02-14 19:21 | NUR ---
PATIENT RESTING IN BED WITH NO S/S OF DISTRESS AND DAUGHTER AT BEDSIDE. VSS. PATIENT AND DAUGHTER DENY NEEDS AT THIS TIME. BED IN LOWEST POSITION, CALL LIGHT WITHIN REACH, AND BED ALARM ON. WILL CONTINUE TO MONITOR.
--- NOTE | 2020-02-14 21:08 | NUR ---
ADMINISTERED MEDS PER ORDERS. PATIENT DENIES NEED FOR BEDPAN AT THIS TIME. ENCOURAGED PATIENT TO CALL IF SHE HAS NEEDS. WILL CONTINUE TO MONITOR.
[2020-02-15] VITALS (7 sets, daily range): BP systolic 125–148; BP diastolic 67–77
[2020-02-15 07:09] LABS: BASOPHILS 0.3 % (0-2); EOSINOPHILS 4.1 % (0-7); HEMATOCRIT 30.2 % (36.0-48.0); HEMOGLOBIN 9.6 g/dL (12-16); IMMATURE GRANULOCYTES 0.3 % (0-5); LYMPHOCYTES 14.4 % (15-50); MCH 29.1 pg (26.0-34.0); MCHC 31.8 g/dL (31.0-37.0); MCV 91.5 fL (80.0-100.0); MEAN PLATELET VOLUME 9.7 fL (7.4-10.4); MONOCYTES 12.5 % (2-11); NEUTROPHILS 68.4 % (40-80); RDW 13.9 % (11.5-14.5); WBC 7.4 10x3/uL (4.8-10.8)
[2020-02-15 07:28] LABS: PLATELET COUNT 292 10x3/uL (130-400)
--- NOTE | 2020-02-15 07:30 | NUR ---
AWAKE AND ALERT. ORIENTED TO SELF ONLY. ATTEMPTS TO REORIENT WITHOUT SUCCESS. LUNGS ARE CLEAR BILATERALLY, NO COUGH NOTED. SKIN IS INTACT WITHOUT REDNESS EXCEPT INCISION TO RIGHT HIP WHICH HAS A SOILED DRESSING IN PLACE. CHANGED PER STAFF. INCISION IS DRY WITH CLIPS INTACT. NO IV AT THIS TIME. BREAKFAST SERVED IN ROOM. MEAL SET UP PER STAFF. PATIENT CAN FEED SELF. DENIES NEEDS.
[2020-02-15 07:32] LABS: CALC OSMOLALITY 270 mosm/kg (275-300); CALCIUM 8.3 mg/dL (8.5-10.1); CARBON DIOXIDE 26.2 mmol/L (21.0-32.0); CHLORIDE - SERUM 103 mmol/L (98-107); CREATININE - SERUM 0.7 mg/dL (0.6-1.3); GLUCOSE 82 mg/dL (74-106); POTASSIUM - SERUM 4.1 mmol/L (3.5-5.1); SODIUM 136 mmol/L (136-145); UREA NITROGEN 13 mg/dL (7-18); eGFR NON AFRICAN AMERICAN 85 mL/min (90-120)
--- NOTE | 2020-02-15 09:31 | NUR ---
ATE ABOUT 10% OF BREAKFAST. STATED SHE WAS FULL. TOOK AM MEDS WITHOUT DIFFICULTY. DENIES NEEDS.
[2020-02-15] MEDS ORDERED: ELIQUIS2.5 MG PO (09:57)
[2020-02-15] MEDS ORDERED: ULTRAM50 MG PO (09:58)
--- NOTE | 2020-02-15 10:15 | NUR ---
UP TO CHIAR AT BEDSIDE PER PT. INCONTINENT OF URINE. SKIN CARE PER STAFF. LINENS CHANGED.
--- NOTE | 2020-02-15 13:07 | NUR ---
OT NOTE: PT DOING BETTER TODAY; MAX ASSIST FOR SUPINE TO SIT; SITTING BALANCE ON EOB MUCH BETTER THAN LAST WEEK. PT WAS ABLE TO SIT UNASSISTED FOR APPROX 5 MIN. TOTAL ASSIST TO URSZULA SOCKS AND MAX ASSIST TO URSZULA GOWN. ABLE TO STAND WITH PT AND ASSIST OF 2 (OT AND PT) WITH MAX ASSIST FOR SIT TO STAND AND MOD ASSIST TO MAINTAIN STANDING. ATTEMPTED TO ADVANCE WITH GAIT, HOWEVER, PT ABLE TO MOVE LES VERY MINIMALLY. DUE TO CONFUSION AND PAIN, PT WAS UNABLE TO PERFORM TRANSFER WITH WALKER. ALLOWED PT TO REST ON EOB, THEN PT WAS TRANSFERRED TO CHAIR WITH TOTAL ASSIST. CIRILO DEL ANGEL, OTR/L [phone]
--- NOTE | 2020-02-15 13:23 | NUR ---
ATE MOST OF BREAKFAST WITH SET UP ASSISTANCE. DENIES NEEDS.
--- NOTE | 2020-02-15 13:34 | NUR ---
BACK TO BED PER PT. MAX ASSIST OF 2.
--- NOTE | 2020-02-15 15:18 | NUR ---
RESTING QUIETLY IN BED WATCHING TV AND EATING ICE CREAM. DENIES NEEDS.
--- NOTE | 2020-02-15 17:54 | NUR ---
ATE ONLY A FEW BITES OF SUPPER. VISITOR IN ROOM. INCONTINENT OF URINE AND STOOL. SKIN CARE PER STAFF. LINENS CHANGED. DENIES NEEDS. NO CHANGES NOTED.
--- NOTE | 2020-02-15 19:22 | NUR ---
PATIENT RESTING IN BED WITH NO S/S OF DISTRESS AND GUEST AT BEDSIDE. BROUGHT PATIENT A SNACK PER HER REQUEST. PATIENT AND GUEST DENY OTHER NEEDS AT THIS TIME. BED IN LOWEST POSITION AND CALL LIGHT WITHIN REACH. ENCOURAGED THE PATIENT TO CALL IF SHE HAS NEEDS. WILL CONTINUE TO MONITOR.
--- NOTE | 2020-02-16 02:30 | NUR ---
PATIENT RESTING IN BED WITH EYES CLOSED AND NO S/S OF DISTRESS. BED IN LOWEST POSITION AND CALL LIGHT WITHIN REACH. WILL CONTINUE TO MONITOR.
[2020-02-16 04:18] VITALS: BP 147/80
[2020-02-16 06:58] LABS: BASOPHILS 0.3 % (0-2); EOSINOPHILS 4.9 % (0-7); HEMATOCRIT 28.5 % (36.0-48.0); HEMOGLOBIN 9.1 g/dL (12-16); IMMATURE GRANULOCYTES 0.3 % (0-5); LYMPHOCYTES 11.8 % (15-50); MCH 28.7 pg (26.0-34.0); MCHC 31.9 g/dL (31.0-37.0); MCV 89.9 fL (80.0-100.0); MONOCYTES 11.8 % (2-11); NEUTROPHILS 70.9 % (40-80); PLATELET COUNT 351 10x3/uL (130-400); RBC 3.17 10x6/uL (4.00-5.40); RDW 13.5 % (11.5-14.5); WBC 7.7 10x3/uL (4.8-10.8)
[2020-02-16 07:08] LABS: CALC OSMOLALITY 267 mosm/kg (275-300); CALCIUM 8.5 mg/dL (8.5-10.1); CARBON DIOXIDE 28.2 mmol/L (21.0-32.0); CHLORIDE - SERUM 101 mmol/L (98-107); CREATININE - SERUM 0.7 mg/dL (0.6-1.3); GLUCOSE 93 mg/dL (74-106); MAGNESIUM - SERUM 1.9 mg/dL (1.8-2.4); POTASSIUM - SERUM 4.2 mmol/L (3.5-5.1); SODIUM 134 mmol/L (136-145); UREA NITROGEN 13 mg/dL (7-18); eGFR NON AFRICAN AMERICAN 85 mL/min (90-120)
[2020-02-16 07:55] VITALS: BP 143/71
--- NOTE | 2020-02-16 07:55 | NUR ---
PT INCONTINENT OF URINE. CHANGED PADS AND PARTIAL LINEN CHANGE. ORAL AND DENTURE CARE DONE. AM MEDS PASSED. MENU FILLED OUT WITH PT. PT SAT ALL THE WAY UP IN BED TO EAT BREAKFAST. TRAY SET UP FOR PT. HEELS FLOATED ON PILLOW. RIGHT HIP DRESSING INTACT. PT ALERT AND CONFUSED TO TIME. PT WEARING GLASSES. BED LOW. CL IN REACH. BED ALARM ON.
--- NOTE | 2020-02-16 11:16 | OP ---
PATIENT NAME: SERENE LAUGHLIN MEDICAL RECORD: [id number] :39 LOCATION:D.M3 D.1212 ADMISSION DATE:02/10/20 SURGEON: ELLA LEWIS MD DATE OF OPERATION: 02/11/2020 PREOPERATIVE DIAGNOSIS: Displaced right femoral neck fracture. POSTOPERATIVE DIAGNOSIS: Displaced right femoral neck fracture. PROCEDURE: Bipolar endoprosthesis of the right hip. SURGEON: Ella Lewis MD MICROBIOLOGY LAB ANALYST: None. INTRAOPERATIVE COMPLICATIONS: None. SUMMARY OF PATHOLOGIC FINDINGS: The patient did indeed have a displaced femoral neck fracture obviating the need for bipolar hip arthroplasty size 3 stem with a size 43 outside diameter bipolar component and a size 26 -3 femoral head. OPERATIVE SUMMARY IN DETAIL: After obtaining the appropriate preoperative orthopedic surgery consent as well as anesthetic consultation, evaluation, and clearance, the patient was brought to the operating room and placed on the operating table in supine position. After adequate general laryngeal mask airway was administered, the patient was placed in a left lateral decubitus position. All pressure points were well padded to include down leg peroneal pad as well as axillary roll. The patient was held firmly to the operating table using the vacuum pack suction system. Right lower extremity and hip were then prepped and draped in routine sterile fashion. A curvilinear incision made of the greater trochanter, taken down along the IT band, was split in line with the fibers of IT band to reveal gluteus medius minimus attachment. These were reflected anteriorly. The hip capsule was split in a T-type fashion and saved for later reapproximation. The femoral neck cut was made using the femoral neck cutting guide for the Accolade II stem. All fragments were removed along with the femoral head. Appropriate measurements were taken. Serial and sequential reaming broaching were done for the Accolade II size 3 stem. This was put into place. Trial was undertaken. It was felt -3 was the most appropriate for leg length orthodoxy. The -3 on the 43 head was put into place, reduced, taken through range of motion. Intraoperative radiographs were taken and showed good position and placement of all components. The wound was then copiously irrigated. A gram of vancomycin and a gram of tobramycin were put into place. It was then closed by SOFÍA Baker, including a transosseous reapproximation of gluteus medius minimus back to the greater trochanter using #5 Ethibond followed by #2 Ethibond reapproximation of the IT band. This was then followed by #1 Vicryl, 2-0 Vicryl and skin zari for final closure. Sterile dressings were applied. The patient was awakened and taken to recovery room in stable condition. All final needle and sponge counts were correct. TRANSINT:[id number] Voice Confirmation ID: [id number] DOCUMENT ID: [id number] OPERATIVE REPORT [id number] SERENE LAUGHLIN MD, ELLA MORALES at 1116 CC: [id number] DICTATION DATE: 02/15/20 1637 PRINTING MECHANIST: 02/16/20 0101 ADM IN [facility] [address] [place] [address]
[2020-02-16 12:30] VITALS: BP 109/54
[2020-02-16 14:26] VITALS: Ht 157.5 cm; Wt 51.7 kg
--- NOTE | 2020-02-16 14:40 | NUR ---
P.T. WORKING WITH PT AND GOT PT UP TO THE BATHROOM AND BACK TO BED. THEY STATED PT HAD A LARGE BM. I VERBALIZED UNDERSTANDING.
--- NOTE | 2020-02-16 16:22 | NUR ---
Rehab Note- Continue to follow the patient at this time. Faxed updated clinicals this AM to [facility] for pending auth approval for inpatient acute rehab stay. Continue to await auth at this time. Thank you for this referral! Sindi Eckert RN Clinical Liaison, [facility] Re[facility]
--- NOTE | 2020-02-16 16:36 | NUR ---
OT NOTE: PT COMPLETED BED MOB TASKS WITH MOD A . PT COMPLETED SIDE ROLLING AND SUPINE TO SIT. [phone] THANK YOU,ZAIRE CASTAÑEDA
[2020-02-16 16:40] VITALS: BP 124/55; BP 151/67
--- NOTE | 2020-02-16 17:51 | NUR ---
OT NOTE: ASSISTED PT WITH SIT TO STAND FROM CHAIR..ATTEMPTED USE OF WALKER, HOWEVER, PT WITH INCREASED DIFFICULTY THIS AFTERNOON. PLACED PT BACK IN CHAIR AND THEN LIFTED HER BACK TO BED WITH TOTAL ASSIST. MAX ASSIST WITH BED MOB; PT WAS INCONT OF BOWEL AND REQUIRED TOTAL ASSIST WITH TOILET HYGIENE; MAX ASSIST WITH ROLLING SIDE TO SIDE; MAX ASSIST TO DOFF AND URSZULA GOWN; MAX ASSIST TO CLEAN HANDS. REPOSITIONED BACK IN BED WITH MAX ASSIST. PT PLEASANT BUT VERY CONFUSED. CIRILO DEL ANGEL, OTR/L [phone]
[2020-02-16 20:20] VITALS: BP 101/62
[2020-02-17] VITALS: BP 144/76
--- NOTE | 2020-02-17 01:46 | NUR ---
ALERT RESTING IN BED, CONFUSED AT TIMES, DENIES PAIN, INCONTIENT OF BOWEL AND BLADDER PADS CHANGED, SEE SHIFT ASSESSMENT, DRESSING TO RIGHT HIP C/D/I,CALL LIGHT IN REACH
[2020-02-17 04:00] VITALS: BP 116/62
--- NOTE | 2020-02-17 07:30 | NUR ---
PATIENT RESTING IN BED WITH EYES CLOSED, NO S/S OF DISTRESS NOTED, DENIES ANY NEEDS AT THIS TIME, C/L AND FLUIDS IN REACH.
[2020-02-17 07:40] LABS: BASOPHILS 0.3 % (0-2); EOSINOPHILS 4.6 % (0-7); HEMOGLOBIN 8.7 g/dL (12-16); IMMATURE GRANULOCYTES 0.4 % (0-5); LYMPHOCYTES 12.7 % (15-50); MCH 28.8 pg (26.0-34.0); MCHC 32.2 g/dL (31.0-37.0); MCV 89.4 fL (80.0-100.0); MEAN PLATELET VOLUME 9.5 fL (7.4-10.4); MONOCYTES 13.6 % (2-11); NEUTROPHILS 68.4 % (40-80); PLATELET COUNT 379 10x3/uL (130-400); RBC 3.02 10x6/uL (4.00-5.40); RDW 13.5 % (11.5-14.5); WBC 7.2 10x3/uL (4.8-10.8)
--- NOTE | 2020-02-17 07:55 | NUR ---
PT RESTING QUIETLY IN BED. RESP EVEN AND UNLABORED. AWAKENS WITH NAME CALLED. PT DENIES PAIN AT THIS TIME. DRESSING INTACT TO RIGHT HIP. DENIES NEEDS AT THIS TIME. CL WITHIN REACH. ENCOURAGED TO CALL WITH NEEDS. CONTINUE POC
[2020-02-17 08:00] VITALS: BP 131/67
[2020-02-17 08:05] LABS: ALBUMIN 2.1 g/dL (3.4-5.0); ALKALINE PHOSPHATASE 83 U/L (30-120); ALT (SGPT) 29 U/L (10-68); BILIRUBIN - TOTAL 0.75 mg/dL (0.2-1.3); CALC OSMOLALITY 265 mosm/kg (275-300); CALCIUM 8.5 mg/dL (8.5-10.1); CHLORIDE - SERUM 98 mmol/L (98-107); CREATININE - SERUM 0.7 mg/dL (0.6-1.3); GLUCOSE 92 mg/dL (74-106); POTASSIUM - SERUM 3.8 mmol/L (3.5-5.1); PROTEIN - SERUM 6.5 g/dL (6.4-8.2); SODIUM 132 mmol/L (136-145); UREA NITROGEN 14 mg/dL (7-18); eGFR NON AFRICAN AMERICAN 85 mL/min (90-120)
--- NOTE | 2020-02-17 09:43 | NUR ---
Rehab Note- Received call from Carmen with [facility] stated that the patient had been approved for an inpatient acute rehab stay. Notified RIDDH[facility] Rain. Thank you for this referral! Sindi Eckert RN Clinical Liaison, [facility] Rehab
--- NOTE | 2020-02-17 09:55 | NUR ---
PT UP IN CHAIR AT BEDSIDE. SITTING QUIETLY WATCHING TV. NO ACUTE DISTRESS NOTED. DENIES PAIN AT THIS TIME. CL WITHIN REACH. ENCOURAGED TO CALL WITH NEEDS.
--- NOTE | 2020-02-17 10:10 | MORECARE ---
CASE MANAGEMENT DISCHARGE SUMMARY PATIENT: SERENE LAUGHLIN UNIT: [id number] ADM DATE: 02/10/20 AGE: 85 : 37 SEX: F ROOM/BED: D.1212 AUTHOR: PEPPER PEACOCK PHYSICIAN: REFERRING PHYSICIAN: PRAVIN JACOBO MD DATE OF SERVICE: 02/17/20 Discharge Plan Patient Name: SERENE LAUGHLIN Facility: [facility]:[place] : 1935 Planned Disposition: Inpatient Rehab Anticipated Discharge Date: 02/17/20 Discharge Date: Expected LOS: 7 Initial Reviewer: [email or web address] Initial Review Date: 02/10/2020 Generated: 02/17/20 11:10 am Comments DCP- Discharge Planning Updated by [email or web address]: Briseyda Huber on 02/17/20 9:[address] CM met with patient to discuss initial discharge planning. Daughter is in agreement to proceed with the assessment. Patient lives in a private home, partially dependent with her care, with 24 hour caregivers. Patient is alert, has dementia Stairs/steps: 0. PCP: Dr. Ayon. Pharmacy: Patient daughter states she is unable to physically care for her mother, due to her own health issues. HHS: No. DME: [facility]. Emergency contact: Sony Barton (dtr) [phone]. Patient requires assistance with bathing, medication management CHECK TOTALER. CM discussed the availability of HH, Rehab, SNF, OP Therapy, DME services. Patient daughter request [facility] upon DC, prior to returning home. Patient denies hospitalization within the past 30 days. Patient denies the use of community resources CHECK TOTALER. Transportation at time of discharge: DC to [facility]. Patient's daughter notified of Insurance authorization for Rehab. Coverage Notice Reviewer: [id number] Isra Huber Notice Issued Date-Time: 02/12/2020 12:46 Notice Type: IM Discharge Notice Notice Delivered To: Family Member Relationship to Patient: Daughter Pickler Helper Name: MARTÍN BARTON Delivery Method: HAND - Hand Delivered Samaria Days: Prior Verbal Notification: Recipient Understood Notice: Yes Recipient Signature: Yes Med Rec Note Co-signed by Attending: Coverage Notice Comment: DC IMM SIGNED/PROVIDED TO DAUGHTER. COPY TO CHART. Reviewer: [id number] Isra Huber Notice Issued Date-Time: 02/12/2020 13:24 Notice Type: Patient Choice Letter Notice Delivered To: Family Member Relationship to Patient: Daughter Pickler Helper Name: Martín Thompson Delivery Method: HAND - Hand Delivered Samaria Days: Prior Verbal Notification: Recipient Understood Notice: Yes Recipient Signature: Yes Med Rec Note Co-signed by Attending: Coverage Notice Comment: Patient choice for [facility] signed by daughter. Original to chart. Last DP export: 02/12/20 3:56 p Patient Name: SERENE LAUGHLIN Page [phone] at 1010 All edits/amendments must be made on the electronic document DICTATION DATE: 02/17/20 1010 ACTIVATED SLUDGE ATTENDANT: PRISCA 02/17/20 1010 RPT#: [id number] DC DATE: STATUS: ADM IN [facility] [address] [place] [address] END OF REPORT
[2020-02-17] MEDS ORDERED: PROTONIX40 MG PO (10:23)
[2020-02-17] MEDS ORDERED: MIRALAX17 GM PO (10:23)
[2020-02-17] MEDS ORDERED: DULCOLAX10 MG/SUPP RC (10:23)
[2020-02-17] MEDS ORDERED: HYDROCODON-ACE1 EA10 PO (10:23)
--- NOTE | 2020-02-17 11:56 | NUR ---
UP IN CHAIR RESTING WITH EYES CLOSED, NO S/S OF DISTRESS NOTED, RESP EVEN AND UNLABORED, C/L AND FLUIDS IN REACH.
--- NOTE | 2020-02-17 12:25 | NUR ---
PT SITTING UP IN CHAIR. ASSISTED WITH SITTING LUNCH UP FOR PATIENT. PT ATTEMPTING TO FEED SELF AND DOING WELL. DENIES PAIN AND FURTHER NEEDS. CL WITHIN REACH. ENCOURAGED TO CALL WITH NEEDS.
--- NOTE | 2020-02-17 12:34 | MORECARE ---
CASE MANAGEMENT DISCHARGE SUMMARY PATIENT: SERENE LAUGHLIN UNIT: [id number] ADM DATE: 02/10/20 AGE: 85 : 37 SEX: F ROOM/BED: D.1212 AUTHOR: AYUSHDOC PHYSICIAN: REFERRING PHYSICIAN: PRAVIN JACOBO MD DATE OF SERVICE: 02/17/20 Discharge Plan Patient Name: SERENE LAUGHLIN Facility: [facility]:[place] : 1935 Planned Disposition: Inpatient Rehab Anticipated Discharge Date: 02/17/20 Discharge Date: Expected LOS: 7 Initial Reviewer: [email or web address] Initial Review Date: 02/10/2020 Generated: 02/17/20 1:33 pm Comments DCP- Discharge Planning Updated by [email or web address]: Briseyda Huber on 02/17/20 11:[address] DC Plan: Patient has been accepted to [facility] per Sindi. CM contacted patient's daughter, Martín Barton #[phone], notified that her mother has been accepted to Rehab. Provided the phone number for nurse contact. CM met with patient to discuss initial discharge planning. Daughter is in agreement to proceed with the assessment. Patient lives in a private home, partially dependent with her care, with 24 hour caregivers. Patient is alert, has dementia Stairs/steps: 0. PCP: Dr. Ayon. Pharmacy: Patient daughter states she is unable to physically care for her mother, due to her own health issues. HHS: No. DME: [facility]. Emergency contact: Sony Barton (dtr) [phone]. Patient requires assistance with bathing, medication management UNEMPLOYMENT SPECIALIST. CM discussed the availability of HH, Rehab, SNF, OP Therapy, DME services. Patient daughter request [facility] upon DC, prior to returning home. Patient denies hospitalization within the past 30 days. Patient denies the use of community resources UNEMPLOYMENT SPECIALIST. Transportation at time of discharge: DC to [facility]. Patient's daughter notified of Insurance authorization for Rehab. Coverage Notice Reviewer: [id number] Isra Huber Notice Issued Date-Time: 02/12/2020 12:46 Notice Type: IM Discharge Notice Notice Delivered To: Family Member Relationship to Patient: Daughter Programmer Operator Numerical Control Name: MARTÍN BARTON Delivery Method: HAND - Hand Delivered Samaria Days: Prior Verbal Notification: Recipient Understood Notice: Yes Recipient Signature: Yes Med Rec Note Co-signed by Attending: Coverage Notice Comment: DC IMM SIGNED/PROVIDED TO DAUGHTER. COPY TO CHART. Reviewer: [id number] Isra Huber Notice Issued Date-Time: 02/12/2020 13:24 Notice Type: Patient Choice Letter Notice Delivered To: Family Member Relationship to Patient: Daughter Programmer Operator Numerical Control Name: Martín Thompson Delivery Method: HAND - Hand Delivered Samaria Days: Prior Verbal Notification: Recipient Understood Notice: Yes Recipient Signature: Yes Med Rec Note Co-signed by Attending: Coverage Notice Comment: Patient choice for [facility] signed by daughter. Original to chart. Last DP export: 02/17/20 9:10 a Patient Name: SERENE LAUGHLIN Page [phone] at 1234 All edits/amendments must be made on the electronic document DICTATION DATE: 02/17/20 1233 TWISTING MACHINE OPERATOR: PRISCA 02/17/20 1233 RPT#: [id number] DC DATE: STATUS: ADM IN [facility] [address] [place] [address] END OF REPORT
--- NOTE | 2020-02-17 14:09 | NUR ---
REPORT CALLED TO TAYLOR AT REHAB FOR DISCHARGE TO REHAB.
--- NOTE | 2020-02-17 14:25 | NUR ---
PT DISCHARGED VIA W/C TO REHAB WITH ALL PERSONAL BELONGINGS.
--- NOTE | 2020-02-17 15:26 | MORECARE ---
CASE MANAGEMENT DISCHARGE SUMMARY PATIENT: SERENE LAUGHLIN UNIT: [id number] ADM DATE: 02/10/20 AGE: 85 : 37 SEX: F ROOM/BED: D.1212 AUTHOR: PEPPER PEACOCK PHYSICIAN: REFERRING PHYSICIAN: PRAVIN JACOBO MD DATE OF SERVICE: 02/17/20 Discharge Plan Patient Name: SERENE LAUGHLIN Facility: [facility]:[place] : 1935 Planned Disposition: Inpatient Rehab Anticipated Discharge Date: 02/17/20 Discharge Date: 02/17/2020 Expected LOS: 7 Initial Reviewer: [email or web address] Initial Review Date: 02/10/2020 Generated: 02/17/20 4:25 pm Comments DCP- Discharge Planning Updated by [email or web address]: Briseyda Huber on 02/17/20 11:[address] DC Plan: Patient has been accepted to [facility] per Sindi. CM contacted patient's daughter, Martín Barton #[phone], notified that her mother has been accepted to Rehab. Provided the phone number for nurse contact. CM met with patient to discuss initial discharge planning. Daughter is in agreement to proceed with the assessment. Patient lives in a private home, partially dependent with her care, with 24 hour caregivers. Patient is alert, has dementia Stairs/steps: 0. PCP: Dr. Ayon. Pharmacy: Patient daughter states she is unable to physically care for her mother, due to her own health issues. HHS: No. DME: [facility]. Emergency contact: Sony Barton (dtr) [phone]. Patient requires assistance with bathing, medication management DOT COMPLIANCE MANAGER. CM discussed the availability of HH, Rehab, SNF, OP Therapy, DME services. Patient daughter request [facility] upon DC, prior to returning home. Patient denies hospitalization within the past 30 days. Patient denies the use of community resources DOT COMPLIANCE MANAGER. Transportation at time of discharge: DC to [facility]. Patient's daughter notified of Insurance authorization for Rehab. Coverage Notice Reviewer: [id number] Isra Huber Notice Issued Date-Time: 02/12/2020 12:46 Notice Type: IM Discharge Notice Notice Delivered To: Family Member Relationship to Patient: Daughter Leather Splitter Name: MARTÍN BARTON Delivery Method: HAND - Hand Delivered Samaria Days: Prior Verbal Notification: Recipient Understood Notice: Yes Recipient Signature: Yes Med Rec Note Co-signed by Attending: Coverage Notice Comment: DC IMM SIGNED/PROVIDED TO DAUGHTER. COPY TO CHART. Reviewer: [email or web address] Isra Huber Notice Issued Date-Time: 02/12/2020 13:24 Notice Type: Patient Choice Letter Notice Delivered To: Family Member Relationship to Patient: Daughter Leather Splitter Name: Martín Thompson Delivery Method: HAND - Hand Delivered Samaria Days: Prior Verbal Notification: Recipient Understood Notice: Yes Recipient Signature: Yes Med Rec Note Co-signed by Attending: Coverage Notice Comment: Patient choice for [facility] signed by daughter. Original to chart. Last DP export: 02/17/20 11:34 a Patient Name: SERENE LAUGHLIN Page [phone] at 1526 All edits/amendments must be made on the electronic document DICTATION DATE: 02/17/20 1525 SENIOR MECHANICAL ESTIMATOR: PRISCA 02/17/20 1525 RPT#: [id number] DC DATE:02/17/20 STATUS: DIS IN [facility] [address] [place] [address] END OF REPORT
== END 2020-02-17 15:19 | DRG 469 ==
LOC: D.ER 12:25 → D.M3 15:26
PROVIDERS: Family Medicine; Orthopaedic Surgery; ADMIT Internal Medicine Nephrology; ATTEND Internal Medicine Nephrology
PROC: 0SR90JZ Replacement of Right Hip Joint with Synthetic Substitute, Open Approach (ICD-10-PCS; principal; 2020-02-11 12:00)
DX: S72.001A Fracture of unspecified part of neck of right femur, initial encounter for closed fracture (principal); G92 Toxic encephalopathy; N17.9 Acute kidney failure, unspecified; E87.1 Hypo-osmolality and hyponatremia; E44.0 Moderate protein-calorie malnutrition; W19.XXXA Unspecified fall, initial encounter; Z68.20 Body mass index [BMI] 20.0-20.9, adult; F03.90 Unspecified dementia, unspecified severity, without behavioral disturbance, psychotic disturbance, mood disturbance, and anxiety; K21.9 Gastro-esophageal reflux disease without esophagitis; F41.8 Other specified anxiety disorders; T42.75XA Adverse effect of unspecified antiepileptic and sedative-hypnotic drugs, initial encounter

== ENCOUNTER 2020-02-17 16:04 | Inpatient (IN) | payer MEDICARE ==
[~2020-02-17] VITALS: Ht 157.5 cm; Wt 51.7 kg
--- NOTE | 2020-02-17 14:20 | NUR ---
RECIEVED FROM ACUTE FLOOR.ORIENTED TO ROOM AND SURROUNDINGS.CL IN REACH.PT IS PLEASANTLY CONFUSED.
--- NOTE | 2020-02-17 16:00 | NUR ---
INCONTINENT OF URINE.CLEANED WITH LINENS CHANGED.CL IN REACH.NEDIANN AT BEDSIDE.
[~2020-02-17 16:04] MED LIST changes: +COLACE100 MG PO; +DULCOLAX10 MG/SUPP RC; +ELIQUIS2.5 MG PO; +HYDROCODON-ACE1 EA10 PO; +MIRALAX17 GM PO; +ULTRAM50 MG PO
[2020-02-17 17:34] VITALS: BP 111/67; BMI 20.9
[2020-02-17 19:43] VITALS: BP 105/63
[2020-02-18 06:09] LABS: BASOPHILS 0.5 % (0-2); EOSINOPHILS 7.5 % (0-7); HEMATOCRIT 31.9 % (36.0-48.0); HEMOGLOBIN 10.1 g/dL (12-16); IMMATURE GRANULOCYTES 0.8 % (0-5); LYMPHOCYTES 16.3 % (15-50); MCH 28.8 pg (26.0-34.0); MCHC 31.7 g/dL (31.0-37.0); MCV 90.9 fL (80.0-100.0); MEAN PLATELET VOLUME 9.5 fL (7.4-10.4); MONOCYTES 13.4 % (2-11); NEUTROPHILS 61.5 % (40-80); RBC 3.51 10x6/uL (4.00-5.40); RDW 13.8 % (11.5-14.5); WBC 6.4 10x3/uL (4.8-10.8)
[2020-02-18 06:23] LABS: CALC OSMOLALITY 270 mosm/kg (275-300); CALCIUM 8.8 mg/dL (8.5-10.1); CARBON DIOXIDE 28.7 mmol/L (21.0-32.0); CHLORIDE - SERUM 101 mmol/L (98-107); CREATININE - SERUM 0.7 mg/dL (0.6-1.3); GLUCOSE 74 mg/dL (74-106); SODIUM 135 mmol/L (136-145); UREA NITROGEN 17 mg/dL (7-18); eGFR NON AFRICAN AMERICAN 85 mL/min (90-120)
[2020-02-18 06:24] LABS: POTASSIUM - SERUM 4.7 mmol/L (3.5-5.1)
[2020-02-18 06:31] LABS: PLATELET COUNT 458 10x3/uL (130-400)
[2020-02-18 08:14] VITALS: BP 130/57
--- NOTE | 2020-02-18 10:14 | NUR ---
HAS BEEN SITTING UP IN BED WATCHING TV IN ROOM AFTER SHE FINISHED THERAPY. SHE IS CONFUSED AND THINKS IT IS 1980. DENIES INCREASED PAIN. DSG IN PLACE TO RT HIP. CALL LIGHT IN REACH. BED IN LOWEST POSITION, SIDE RAILS UP X2.
[2020-02-18 14:18] VITALS: Ht 157.5 cm; Wt 51.7 kg
--- NOTE | 2020-02-18 19:30 | NUR ---
PATIENT RECEIVED LAYING IN BED. ASSESSMENT & VITAL SIGNS DONE. NO C/O PAIN OR DISTRESS. ALARM ON. BED LOW. CALL LIGHT WITHIN REACH. WILL CONTINUE TO MONITOR.
[2020-02-18 21:53] VITALS: BP 106/49
--- NOTE | 2020-02-18 23:50 | NUR ---
PATIENT CLEANED & DRIED. INCONTINENCE OF BLADDER. NEW PADS UNDER BUTT. CALL LIGHT WITHIN REACH. WILL CONTINUE TO MONITOR.
--- NOTE | 2020-02-19 01:50 | NUR ---
PATIENT EYES CLOSED. RESPIRATIONS 18 & EVEN. PADS DRY. BED LOW. ALARM ON. CALL LIGHT WITHIN REACH. WILL CONTIUE TO MONITOR.
--- NOTE | 2020-02-19 02:20 | NUR ---
I have reviewed this patient and I concur with the Shift Assessment completed by the Licensed Practical Nurse today this shift.
--- NOTE | 2020-02-19 03:44 | NUR ---
PATIENT INCONTINENCE OF URINE. PATIENT TURNED & DIRTY PADS REMOVED. BUTTOCKS CLEANED. CLEANPADS UNDER PATIENT. FRONT PERIAREA CLEANED. HEELS BRIDGED. COVERS ON. BED LOW. CALL LIGHT WITHIN REACH. ALARM ON. WILL CONTINUE TO MONITOR.
[2020-02-19 05:42] LABS: BASOPHILS 0.3 % (0-2); EOSINOPHILS 7.1 % (0-7); HEMATOCRIT 26.5 % (36.0-48.0); HEMOGLOBIN 8.5 g/dL (12-16); IMMATURE GRANULOCYTES 1.1 % (0-5); LYMPHOCYTES 16.1 % (15-50); MCH 28.7 pg (26.0-34.0); MCHC 32.1 g/dL (31.0-37.0); MCV 89.5 fL (80.0-100.0); MEAN PLATELET VOLUME 9.1 fL (7.4-10.4); MONOCYTES 13.8 % (2-11); NEUTROPHILS 61.6 % (40-80); PLATELET COUNT 423 10x3/uL (130-400); RBC 2.96 10x6/uL (4.00-5.40); RDW 13.8 % (11.5-14.5); WBC 6.2 10x3/uL (4.8-10.8)
[2020-02-19 06:00] LABS: CALC OSMOLALITY 264 mosm/kg (275-300); CALCIUM 8.7 mg/dL (8.5-10.1); CARBON DIOXIDE 28.7 mmol/L (21.0-32.0); CHLORIDE - SERUM 100 mmol/L (98-107); CREATININE - SERUM 0.7 mg/dL (0.6-1.3); GLUCOSE 87 mg/dL (74-106); POTASSIUM - SERUM 4.1 mmol/L (3.5-5.1); SODIUM 132 mmol/L (136-145); UREA NITROGEN 15 mg/dL (7-18); eGFR NON AFRICAN AMERICAN 85 mL/min (90-120)
[2020-02-19 08:11] VITALS: BP 128/53
--- NOTE | 2020-02-19 12:25 | NUR ---
SITTING UP IN WC IN ROOM EATING LUNCH. HAS VERY POOR MEMORY AND RECALL. PAIN MEDS GIVEN FOR COMFORT. DSG INTACT TO RT HIP. CALL LIGHT IN REACH
[2020-02-19 19:41] VITALS: BP 116/54
--- NOTE | 2020-02-19 19:48 | NUR ---
AWAKE AND ALERT. RESTING IN BED WITH RESPIRATIONS UNLABORED. PRBC COMPLETE AND NO ADVERSE REACTION NOTED. SALINE LOCK INTACT TO LEFT WRIST INTACT WITH NO SIGNS OF INFILTRATION. CALL LIGHT IN REACH.
--- NOTE | 2020-02-20 01:30 | NUR ---
SLEEPING WITH RESPIRATIONS UNLABORED. NO DISTRESS NOTED.
--- NOTE | 2020-02-20 05:33 | NUR ---
BATH GIVEN AND LINENS CHANGED. HAD INCONTINENT EPISODE OF URINE. ASSISTED TO BATHROOM AND VOIDED IN TOILET WELL. MEDICATED FOR PAIN. SEE MAR. NOW RESTING IN BED WITH NO DISTRESS NOTED.
[2020-02-20 08:00] VITALS: BP 130/70
--- NOTE | 2020-02-20 08:00 | NUR ---
SHIFT ASSMT COMPLETED.BREAKFAST GIVEN.CL IN REACH.
--- NOTE | 2020-02-20 12:00 | NUR ---
EATING LUNCH.MEAL SET-UP PROVIDED.
--- NOTE | 2020-02-20 19:42 | NUR ---
PATIENT RECEIVED SITTING UP IN BED. ASSESSMENT & VITAL SIGNS DONE. NO C/O PAIN OR DISTRESS. BED LOW. ALARM ON. CALL LIGHT WITHIN REACH. WILL CONTINUE TO MONITOR.
[2020-02-20 20:39] VITALS: BP 120/61
--- NOTE | 2020-02-21 01:34 | NUR ---
I have reviewed this patient and I concur with the Shift Assessment completed by the Licensed Practical Nurse today this shift.
--- NOTE | 2020-02-21 03:35 | NUR ---
PATIENT CHANGED. VOID ONLY. PATIENT CLEANED. NEW PAD PLACED UNDER HER. BED LOW. ALARM ON. CALL LIGHT WITHIN REACH. WILL CONTINUE TO [facility].
--- NOTE | 2020-02-21 08:00 | NUR ---
SHIFT ASSMT COMPLETED.UP OOB AND TAKEN TO BATHROOM.BREAKFAST GIVEN.CL IN REACH.
[2020-02-21 08:48] VITALS: BP 139/72
--- NOTE | 2020-02-21 16:00 | NUR ---
VISITING WITH DAUGHTER.
[2020-02-21 20:00] VITALS: BP 140/65
--- NOTE | 2020-02-21 20:00 | NUR ---
PATIENT RECEIVED SITTING UP IN BED. PATIENT TOILETED. VOID ONLY. ASSESSMENT & VITAL SIGNS DONE. PATIENT RETURNED TO LOW BED. ALARM ON. CALL LIGHT WITHIN REACH. WILL CONTINUE TO MONITOR.
--- NOTE | 2020-02-21 20:25 | NUR ---
PATIENT GIVEN PAIN MEDICATION FOR RIGHT HIP PAIN. OTHER SCHEDULED MEDICATIONS GIVEN. PATIENT DENTURES REMOVED, PLACED IN DENTURE CUP. BED LOW. ALARM ON. CALL LIGHT WITHIN REACH. WILL CONTINUE TO MONITOR.
--- NOTE | 2020-02-22 01:31 | NUR ---
I have reviewed this patient and I concur with the Shift Assessment completed by the Licensed Practical Nurse today this shift.
--- NOTE | 2020-02-22 06:01 | NUR ---
PATIENT AWAKE. BATH GIVEN. BED LOW. ALARM ON. CALL LIGHT WITHIN REACH. WILL CONTINUE TO MONITOR.
[2020-02-22 06:26] LABS: CALC OSMOLALITY 271 mosm/kg (275-300); CARBON DIOXIDE 30.9 mmol/L (21.0-32.0); CHLORIDE - SERUM 101 mmol/L (98-107); CREATININE - SERUM 0.7 mg/dL (0.6-1.3); GLUCOSE 87 mg/dL (74-106); SODIUM 136 mmol/L (136-145); UREA NITROGEN 16 mg/dL (7-18); eGFR NON AFRICAN AMERICAN 85 mL/min (90-120)
[2020-02-22 06:44] LABS: BASOPHILS 0.3 % (0-2); EOSINOPHILS 6.5 % (0-7); HEMATOCRIT 36.3 % (36.0-48.0); HEMOGLOBIN 11.3 g/dL (12-16); IMMATURE GRANULOCYTES 1.4 % (0-5); LYMPHOCYTES 16.2 % (15-50); MCH 27.8 pg (26.0-34.0); MCHC 31.1 g/dL (31.0-37.0); MCV 89.2 fL (80.0-100.0); MEAN PLATELET VOLUME 9.1 fL (7.4-10.4); MONOCYTES 11.4 % (2-11); NEUTROPHILS 64.2 % (40-80); RBC 4.07 10x6/uL (4.00-5.40); RDW 15.1 % (11.5-14.5); WBC 6.6 10x3/uL (4.8-10.8)
[2020-02-22 06:50] LABS: PLATELET COUNT 578 10x3/uL (130-400)
[2020-02-22 08:00] VITALS: BP 137/76
--- NOTE | 2020-02-22 08:25 | RHP ---
PATIENT: SERENE LAUGHLIN MEDICAL RECORD: [id number] ACCOUNT: [id number] LOCATION:[id number] : 37 ADMISSION DATE: 02/17/20 REHABILITATION HISTORY AND PHYSICAL EXAMINATION POST ADMISSION PHYSICIAN EXAMINATION ADMITTING DIAGNOSIS: Displaced right femoral neck fracture. HISTORY OF PRESENT ILLNESS: The patient is an 85-year-old female patient who presented to ED after sustaining a fall outside her home where she complained of right hip and knee pain. States she was uncertain how this happened. She has fell over, denied hitting her head. She had a CT of her right hip without contrast, it showed an acute right femoral neck fracture. Orthopedic consult was done. 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 She has got a history of arthritis, depression, dementia, gastroesophageal reflux disease, anxiety and UTIs. She had been receiving both OT and PT throughout her stay and progressing slowly. She is being monitored closely for pain control. She is weightbearing as tolerated to her right lower extremity. She has had acute blood loss anemia. She has had to be placed on some supplemental O2. She has been having some constipation, UTI. She has been incontinent of bowel and bladder at time. She has been on electrolyte protocol. She is on anticoagulation therapy at this time. She has got weakness, balance deficits, decreased activity tolerance, decreased quality of life, gait disturbance. She has some risk for falls. She has got low endurance, unsteady gait and balance, fatigues easily, inability to care for herself and self-care deficits. These are all barriers to her discharge home. She lives at home with caregivers and has a daughter that is involved with the care that has her own health issues and unable to care for her mom at this time. She does require some assistance with ADLs, but was independent with her mobility using a rolling walker prior to this. She is currently set up for max assist for ADLs and max assist for mobility. She and her daughter would like to return home at her prior level of functioning or better if possible. COMORBIDITIES: Include weakness, right femoral neck fracture, acute kidney injury, hyponatremia, moderate protein-calorie malnutrition, arthritis, dementia, gastroesophageal reflux disease, postop anemia. PAST MEDICAL HISTORY: Significant for arthritis, depression, dementia, anxiety, UTIs. PAST SURGICAL HISTORY: Includes appendectomy and now hip surgery. ALLERGIES: No known drug allergies. CURRENT MEDICATIONS: Include B12 she is on a 1000 mcg daily, aspirin 81 mg daily, Protonix 40 mg daily, Effexor 100 mg b.i.d., she is on MiraLax 17 g in 8 ounces of water b.i.d., she is on Trilafon 2 mg at bedtime, Namenda 2.5 mg b.i.d., Eliquis 2.5 mg b.i.d., Colace 200 b.i.d., tramadol 50 mg every 8 hours p.r.n., [place] 10/325 one tab every 4 hours p.r.n., and Dulcolax 10 mg as needed for constipation. HABITS: No alcohol or tobacco use. FAMILY HISTORY: Noncontributory. HISTORY AND PHYSICAL [id number] SERENE LAUGHLIN SOCIAL HISTORY: The patient hopes to return back home and get back to her prior level of functioning. REVIEW OF SYSTEMS: GENERAL: She denies weakness or fatigue. HEENT: She denies cold, cough, or congestion. CARDIOVASCULAR: Denies any chest pain. PHYSICAL EXAMINATION: VITAL SIGNS: Stable. She is afebrile. GENERAL: An elderly female, in no acute distress upon exam. HEENT: Normocephalic and atraumatic. Mucosa moist. NECK: Supple. No lymphadenopathy. LUNGS: Clear in upper [place] with no wheezing or rales. HEART: Regular rate and rhythm. She does have a holosystolic murmur. ABDOMEN: Soft, benign and nondistended. Positive bowel sounds times 4. EXTREMITIES: No clubbing, cyanosis or edema. Postop area looks good. NEUROLOGIC: She does have some diffuse weakness. LABORATORY DATA: White count 6.4, H&H of 10.1 and 31.9 and platelet count was 458. Her sodium is 135, potassium 4.7, BUN and creatinine of 17 and 0.7 and blood sugar is noted to be 74. ASSESSMENT: This is an 85-year-old female patient admitted to rehab with a working diagnosis of right hip fracture status post open reduction internal fixation. The patient has potential to make improvement. We instituted the following multidisciplinary therapies including, but not limited to physical, occupational, respiratory, speech, nutritional services, prosthetics and orthotics. Given her complex medical condition and risk for more complications, rehabilitation services cannot be provided at a low level of care such as [facility] facility. PLAN: 1. Admit to [facility] for intensive inpatient therapy to include the following disciplines; A. Physical therapy to improve gait, all transfer skills and bed mobility to a modified independent level. B. Occupational therapy to improve activities of daily living. C. Case management to assist with discharge planning and placement options. D. Nutrition to assist with nutritional needs. E. Rehabilitation nursing to assist in monitoring the patient's underlying medical conditions and to assist with any type of bowel or bladder management. 2. The patient's current medication and medical care will be continued. 3. The patient will be placed on standard fall precautions. 4. The patient's estimated length of stay is approximately 7-10 days. 5. We will discuss this patient during care team staff meeting this week. Continue on home medications including Eliquis for DVT prophylaxis and I will see again in the a.m. TRANSINT:[id number] Voice Confirmation ID: [id number] DOCUMENT ID: [id number] CHARLINE notes whether there has been none or any medical/functional change since admission: - No change since preadmission screen. HISTORY AND PHYSICAL [id number] SERENE LAUGHLIN attests patient continues to be appropriate for IRF: - Continues to be appropriate. COSMO SCHAEFFER MD at 0825 CC: [id number] DICTATION DATE: 02/18/20 1014 COMBAT CONTROL MANAGER: 02/18/20 1229 ADM IN [facility] [address] [phone]
[2020-02-22 08:37] VITALS: BP 129/68
--- NOTE | 2020-02-22 12:44 | NUR ---
SITTING UP IN BED EATING LUNCH. IS PLEASANTLY CONFUSED. DENIES NEEDS OR PAIN. DSG IN PLACE TO RT HIP. CALL LIGHT IN REACH
--- NOTE | 2020-02-22 15:58 | NUR ---
Nutrition Follow-up: Diet: Regular PO intake: 50-75% x last 3 meals Last BM: 02/21/20; Wt: 114# (02/18/20), no new wt Meds noted: miralax; labs reviewed Recommend continue current diet. Encourage PO intake. May consider adding nutrition supplement if PO intake does not improve. RD following.
[2020-02-22 21:28] VITALS: BP 121/62
--- NOTE | 2020-02-22 23:39 | NUR ---
PT IS RESTING IN BED WITH EYES OPEN. ALERT TO SELF. CONFUSED TO TIME AND PLACE, BUT DID REORIENT EASILY. PT IS FRIENDLY AND COOPERATIVE. RIGHT HIP DRESSING IS CDI. NO DRAINAGE NOTED. SR'S ARE UP X 2 IN BED. CALL LIGHT AND BEDSIDE TABLE ARE WITHIN EASY REACH.
--- NOTE | 2020-02-22 23:40 | NUR ---
PT IS RESTING QUIETLY IN BEDWITH EYES CLOSED. RESPS ARE EVEN AND UNLABORED. NO ACUTE DISTRESS NOTED.
--- NOTE | 2020-02-23 01:23 | NUR ---
I have reviewed this patient and I concur with the Shift Assessment completed by the Licensed Practical Nurse today this shift.
--- NOTE | 2020-02-23 03:00 | NUR ---
PT RESTING IN BED WITH EYES OPEN. INC. CARE GIVEN.
--- NOTE | 2020-02-23 05:59 | NUR ---
PT RESTING IN BED WITH EYES OPEN. INC. CARE GIVEN. NO FURTHER NEEDS VOICED.
--- NOTE | 2020-02-23 07:15 | NUR ---
AROUSES EASILY.ASSESSMENT COMPLETED.DENIES NEEDS.DRESSING INTACT TO RT HIP CLEAN AND DRY.CL IN EASY REACH,BED IN LOW POSITION.WILL CONTINUE WITH CURRENT PLAN OF CARE.
[2020-02-23 08:32] VITALS: BP 141/84
--- NOTE | 2020-02-23 12:06 | NUR ---
PATIENT ADMITTED TO REHAB FROM ACUTE FLOOR. PATIENT PCP IS DR. MARTIN. PATIENT 15/04 CARE GIVERS AT HOME. DME AT HOME IS A WALKER. OLIVIA BARTON (DTR) [phone]. DISCHARGE PLANS ARE FOR PATIENT TO RETURN TO HER HOME. WILL CONTINUE TO FOLLOW WITH PATIENT.
--- NOTE | 2020-02-23 19:45 | NUR ---
ASSESSMENT PER FLOW SHEET, VS OBTAINED PER HOME CARE ASSISTANT, PT REPORTS FLATUS, AND BM, PT DENIES NEEDS OR PAIN AT THIS TIME, BED IN LOW POSITION, SIDE RAILS X 2, CALL LIGHT IN REACH, BED ALARM ON AND WORKING PROPERLY
--- NOTE | 2020-02-23 20:50 | NUR ---
PT AWAKE, ADM 2100 MEDS PER MD ORDERS, SEE EMAR, PT DENIES FURTHER NEEDS
[2020-02-23 20:59] VITALS: BP 107/63
--- NOTE | 2020-02-23 21:20 | NUR ---
PT NURSE CHEMICAL DEPENDENCY LIGHT, PT UP TO BR WITH ASSISTANCE VIA WC, VOIDED WITH NO DIFFICULTY, PT BACK TO BED, DENIES FURTHER NEEDS, BBED IN LOW POSITION, SIDE RAILS X 2, CALL LIGHT IN REACH, BED ALARM ON AND WORKING PROPERLY
--- NOTE | 2020-02-23 23:19 | NUR ---
PT RESTING WITH EYES CLOSED, RESP QUIET, NO DISTRESS NOTED, LEFT UNDISTURBED AT THIS TIME, BED IN LOW POSITION, SIDE RAILS X 2, CALL LIGHT IN REACH, BED ALARM ON AND WORKING PROPERLY
--- NOTE | 2020-02-24 05:25 | NUR ---
PT RESTING WITH EYES CLOSED, AROUSES TO SOFT VERBAL STIMULATION, ADM PROTONIX PER MD ORDERS, SEE EMAR, PT CLEANED UP WITH WET WARM WIPES, PINK PAD, CHUX, AND GOWN CHANGED, FRESH TOP LINENS APPLIED, PT DENIES NEEDS OR PAIN AT THIS TIME, BED IN LOW POSITION, SIDE RAILS X 2, CALL LIGHT IN REACH, BED ALARM ON AND WORKING PROPERLY
[2020-02-24 07:19] LABS: BASOPHILS 0.3 % (0-2); EOSINOPHILS 5.2 % (0-7); HEMATOCRIT 36.1 % (36.0-48.0); HEMOGLOBIN 11.3 g/dL (12-16); IMMATURE GRANULOCYTES 0.9 % (0-5); LYMPHOCYTES 16.2 % (15-50); MCH 28.1 pg (26.0-34.0); MCHC 31.3 g/dL (31.0-37.0); MCV 89.8 fL (80.0-100.0); MEAN PLATELET VOLUME 8.9 fL (7.4-10.4); MONOCYTES 9.4 % (2-11); PLATELET COUNT 604 10x3/uL (130-400); RBC 4.02 10x6/uL (4.00-5.40); RDW 14.9 % (11.5-14.5); WBC 7.5 10x3/uL (4.8-10.8)
[2020-02-24 07:28] LABS: ANION GAP 9.8 mmol/L (8-16); CALCIUM 9.2 mg/dL (8.5-10.1); CARBON DIOXIDE 29.3 mmol/L (21.0-32.0); CREATININE - SERUM 0.8 mg/dL (0.6-1.3); POTASSIUM - SERUM 4.1 mmol/L (3.5-5.1)
[2020-02-24 08:43] VITALS: BP 153/80
--- NOTE | 2020-02-24 08:48 | NUR ---
AWAKE AND ALERT. ASSISTED TO WC FOR BREAKFAST. NO DISTRESS NOTED. CL IN REACH.
--- NOTE | 2020-02-24 08:53 | NUR ---
DR SCHAEFFER NOTIFIED H/H DECREASED.
--- NOTE | 2020-02-24 14:35 | NUR ---
PARTICIPATED IN THERAPY. BACK TO ROOM AT THIS TIME. NO C/O PAIN. CL IN REACH.
--- NOTE | 2020-02-24 15:55 | NUR ---
NO CHANGE IN ASSESSMENT. RESTING . NO DISTRESS. CL IN REACH. PATIENT IS BEING MOVED TO ROOM 1114B.
--- NOTE | 2020-02-24 16:34 | NUR ---
CARE TEAM MEETING: PATIENT IS PROGRESSING IN THERAPY HER TENATIVE DSICHARGE DATE IS 03/04/20. WILL CONTINUE TO FOLLOW WITH PATIENT.
--- NOTE | 2020-02-24 19:30 | NUR ---
REPORT GIVEN BY CARLOS MCKEON
--- NOTE | 2020-02-24 20:00 | NUR ---
PT ASSESSMENT COMPLETED. PT IS RECEIVING MEDS NOW. SHE TAKES THEM ONE AT A TIME. SHE ASKED FOR A PAIN PILL AND IT WAS GIVEN. SHE STATES HER RIGHT HIP PAIN LEVEL IS A 9 AND THE PAIN IS SHARP. SHE IS DOZING OFF AND ON DURING THIS TIME. NO OTHER C/P OR NEEDS. PT IS USUALLY INCONTINENT OF B/B. PT IS SOB WITH DYSPNIA. SHE DOES NOT HAVE ANY 02 AT THIS TIME.
[2020-02-24 23:05] VITALS: BP 110/53
--- NOTE | 2020-02-25 01:25 | NUR ---
PT ASKED TO GO TO THE [facility] PUT HER ON A BEDPAN. PT CALLED WHEN SHE WAS FINISHED. RESTING NOW
--- NOTE | 2020-02-25 05:55 | NUR ---
PT WOKE UP FOR HER MED. SHE HAS NO C/O AT THIS TIME AND NO NEEDS
--- NOTE | 2020-02-25 07:44 | NUR ---
PT IN BED NO NEEDS NOTED FALL PRECAUTIONS IN PLACE, FLUIDS/CALL LIGHT WITHIN REACH
[2020-02-25 08:00] VITALS: BP 147/72
--- NOTE | 2020-02-25 13:52 | NUR ---
CLINICAL UPDATES FAXED TO [facility] , AUTH. # [id number], WITH A TENATIVE DISCHARGE DATE OF 03/04/20, CONFORMATION RECIEVED
[2020-02-25 21:53] VITALS: BP 127/67
--- NOTE | 2020-02-26 00:34 | NUR ---
I have reviewed this patient and I concur with the Shift Assessment completed by the Licensed Practical Nurse today this shift.
--- NOTE | 2020-02-26 01:10 | NUR ---
PATIENT EYES CLOSED. RESPIRATIONS 18 & EVEN. BED LOW. ALARM ON. CALLM LIGHT WITHIN REACH. WILL CONTINUE TO MONITOR.
--- NOTE | 2020-02-26 07:18 | NUR ---
PT ASLEEP, AROUSES EASILY TO VOICE, FALL PRECAUTIONS IN PLACE, NO NEEDS NOTED, FLUIDS/CALL LIGHT WITHIN REACH
[2020-02-26 08:00] VITALS: BP 141/73
[2020-02-26 10:58] LABS: BASOPHILS 0.3 % (0-2); EOSINOPHILS 1.6 % (0-7); HEMATOCRIT 38.6 % (36.0-48.0); IMMATURE GRANULOCYTES 0.3 % (0-5); LYMPHOCYTES 10.4 % (15-50); MCHC 31.1 g/dL (31.0-37.0); MEAN PLATELET VOLUME 8.6 fL (7.4-10.4); MONOCYTES 6.4 % (2-11); PLATELET COUNT 699 10x3/uL (130-400); RBC 4.29 10x6/uL (4.00-5.40); RDW 15.1 % (11.5-14.5); WBC 11.2 10x3/uL (4.8-10.8)
[2020-02-26 11:04] LABS: ANION GAP 13.2 mmol/L (8-16); CALCIUM 9.5 mg/dL (8.5-10.1); CARBON DIOXIDE 26.1 mmol/L (21.0-32.0); POTASSIUM - SERUM 4.3 mmol/L (3.5-5.1)
--- NOTE | 2020-02-26 14:53 | NUR ---
Nutrition Follow-up: Diet: Regular PO intake: ~46% average x last 6 meals; she reports that her appetite is good but that she wants strawberry Ensure on meal trays. Last BM: 02/21/20. WT: 114# (02/18/20), no new wt Meds and labs reviewed. Recommend continue regular diet. Will add strawberry Ensure TID. RD following.
--- NOTE | 2020-02-26 19:34 | NUR ---
PATIENT RECEIVED SITTING UP IN BED. DINNER TRAY TAKEN AWAY. ASSESSMENT & VITAL SIGNS DONE. BED LOW. CALL LIGHT WITHIN REACH. ALARM ON. CALL LIGHT WITHIN REACH. WILL CONTINUE TO MONITOR.
[2020-02-26 19:59] VITALS: BP 135/46
--- NOTE | 2020-02-27 00:43 | NUR ---
PATIENT EYES CLOSED. RESPIRATIONS 18 & EVEN. BRIEF DRY. BED LOW. ALARM ON. CALL LIGHT WITHIN REACH. WILL CONTINUE TO MONITOR.
--- NOTE | 2020-02-27 00:49 | NUR ---
I have reviewed this patient and I concur with the Shift Assessment completed by the Licensed Practical Nurse today this shift.
--- NOTE | 2020-02-27 08:00 | NUR ---
PATIENT RESTING IN BED, AWAKE AND ALERT, V/S AND ASSESSMENT COMPLETED, DENIES ANY OTHER NEEDS AT THIS TIME, EATING BREAKFAST, C/L AND FLUIDS IN REACH.
[2020-02-27 08:11] VITALS: BP 115/71
--- NOTE | 2020-02-27 12:00 | NUR ---
SITTING UP IN BED EATING LUNCH, DENIES ANY NEEDS AT THIS TIME, C/L AND FLUIDS IN REACH.
--- NOTE | 2020-02-27 15:27 | NUR ---
GOT PATIENT UP IN W/C TO GO TO B/R AND GET CLEANED UP, CHANGED BEDDING, PT WANTS TO STAY UP IN W/C, DENIES ANY OTHER NEEDS AT THIS TIME, C/L AND FLUIDS IN REACH.
--- NOTE | 2020-02-27 16:00 | NUR ---
UP IN W/C VISITING WITH FAMILY MEMBER, DENIES ANY NEEDS AT THIS TIME, C/L AND FLUIDS IN REACH.
--- NOTE | 2020-02-27 19:01 | NUR ---
PATIENT RECEIVED LAYING IN BED. DINNER TRAY AT BEDSIDE. ASSESSMENT & VITAL SIGNS DONE. BED LOW. ALARM ON. CALL LIGHT WITHIN REACH. WILL CONTINUE TO MONITOR.
[2020-02-27 20:00] VITALS: BP 149/77
--- NOTE | 2020-02-28 00:31 | NUR ---
I have reviewed this patient and I concur with the Shift Assessment completed by the Licensed Practical Nurse today this shift.
--- NOTE | 2020-02-28 02:52 | NUR ---
PATIENT EYES CLOSED. RESPIRATIONS 18 & EVEN. ALARM ON. CALL LIGHT WITHIN REACH. WILL CONTINUE TO MONITOR.
--- NOTE | 2020-02-28 07:30 | NUR ---
ASSISTED PT. UP IN W/C TO B/R, UP IN W/C EATING BREAKFAST, DENIES ANY NEEDS AT THIS TIME, V/S AND ASSESSMENT COMPLETE, MEDS GIVEN, C/L AND FLUIDS IN REACH.
[2020-02-28 09:13] VITALS: BP 136/71
--- NOTE | 2020-02-28 13:03 | NUR ---
ASSISTED PATIENT TO B/R AND BACK INTO BED, DENIES ANY NEEDS AT THIS TIME, C/L AND FLUIDS IN REACH.
--- NOTE | 2020-02-28 16:05 | NUR ---
RESTING IN BED WITH EYES CLOSED, NO S/S OF DISTRESS NOTED, RESP EVEN AND UNLABORED, C/L AND FLUIDS IN REACH.
--- NOTE | 2020-02-28 19:31 | NUR ---
ALERT AND AWARE AT THIS TIME LAYING IN BED WITH NO STATED NEEDS REGULAR DIET. ON ROOM AIR. MEDS WHOLE. CALL LIGHT AND WATER IN REACH, BED LOW.
[2020-02-28 20:53] VITALS: BP 127/67
[2020-02-29 06:58] LABS: BASOPHILS 0.5 % (0-2); EOSINOPHILS 6.1 % (0-7); HEMATOCRIT 37.1 % (36.0-48.0); HEMOGLOBIN 11.5 g/dL (12-16); IMMATURE GRANULOCYTES 0.4 % (0-5); MCV 90.3 fL (80.0-100.0); MEAN PLATELET VOLUME 8.6 fL (7.4-10.4); MONOCYTES 13.1 % (2-11); NEUTROPHILS 65.9 % (40-80); PLATELET COUNT 600 10x3/uL (130-400); RBC 4.11 10x6/uL (4.00-5.40); RDW 15.2 % (11.5-14.5); WBC 7.6 10x3/uL (4.8-10.8)
[2020-02-29 07:06] LABS: ANION GAP 8.2 mmol/L (8-16); CALCIUM 9.1 mg/dL (8.5-10.1); CARBON DIOXIDE 30.1 mmol/L (21.0-32.0); CREATININE - SERUM 0.9 mg/dL (0.6-1.3); POTASSIUM - SERUM 4.3 mmol/L (3.5-5.1)
[2020-02-29 08:00] VITALS: BP 127/77
--- NOTE | 2020-02-29 08:30 | NUR ---
UP IN W/C ASSISTED TO B/R, ASSESSMENT COMPLETE, DENIES ANY NEEDS AT THIS TIME, C/L AND FLUIDS IN REACH.
--- NOTE | 2020-02-29 12:47 | NUR ---
SITTING UP IN BED EATING LUNCH, DENIES ANY NEEDS AT THIS TIME, C/L AND FLUIDS IN REACH.
--- NOTE | 2020-02-29 16:00 | NUR ---
RESTING IN BED WITH EYES CLOSED, NO S/S OF DISTRESS NOTED, RESP EVEN AND UNLABORED, C/L AND FLUIDS IN REACH.
--- NOTE | 2020-02-29 19:11 | NUR ---
PATIENT RECEIVED SITTING UP IN BED. ASSESSMENT & VITAL SIGNS DONE. BED LOW. ALARM ON. CALL LIGHT WITHIN REACH. WILL CONTINUE TO MONITOR.
[2020-02-29 21:26] VITALS: BP 127/67
--- NOTE | 2020-03-01 01:49 | NUR ---
I have reviewed this patient and I concur with the Shift Assessment completed by the Licensed Practical Nurse today this shift.
--- NOTE | 2020-03-01 02:46 | NUR ---
PATIENT TOILETED. VOID ONLY. RETURNED TO BED MINIMAL ASSIST. BED LOW. CALL LIGHT WITHIN REACH. WILL CONTINUE TO MONITOR.
--- NOTE | 2020-03-01 07:45 | NUR ---
A/A/OX4. DENIES ANY NEEDS AT THIS TIME AND NO REQUESTS VOICED. SIDERAILS UP X 2, CALL LIGHT IN REACH AND BED IN LOW LOCKED POSITION WITH ALARM ON AND OPERATING PROPERLY.
[2020-03-01 08:00] VITALS: BP 151/81
--- NOTE | 2020-03-01 13:38 | NUR ---
I have reviewed this patient and I concur with the Shift Assessment completed by the Licensed Practical Nurse today this shift.
--- NOTE | 2020-03-01 13:52 | NUR ---
Nutrition Follow-up: Diet: Regular + [place] Ensure with meals PO intake: ~64% average x last 9 meals; she reports a good appetite and states that she is drinking Ensure. Last BM: 02/27/20. WT: 114# (02/18/20), no new weight Meds noted: miralax. Labs reviewed Recommend continue current diet and oral nutrition supplement. RD following.
[2020-03-01 21:18] VITALS: BP 132/48
--- NOTE | 2020-03-02 00:57 | NUR ---
PATIENT USED CALL LIGHT FOR ASSIST. PATIENT ASSIST INTO WHEELCHAIR. MINIMAL ASSIST OUT OF WHEELCHAIR & ONTO COMMODE. PATIENT HAD VOID & BM. ASSIST BACK INTO WHEELCHAIR. PATIENT WASHED HANDS. CLEAN DENTURES BACK IN MOUTH BY PATIENT. RETURNED TO BED. HOB 20 DEGREE. COVERED UP. ALARM ON. CALL LIGHT WITHIN REACH. WILL CONTINUE TO MONITOR.
--- NOTE | 2020-03-02 03:39 | NUR ---
PATIENT EYES CLOSED. RESPIRATIONS 18 & EVEN. BED LOW. ALARM ON. CALL LIGHT WITHIN REACH. ALARM ON. CALL LIGHT WITHIN REACH. WILL CONTINUE TO MONITOR.
[2020-03-02 06:49] LABS: BASOPHILS 0.5 % (0-2); HEMATOCRIT 38.1 % (36.0-48.0); HEMOGLOBIN 11.8 g/dL (12-16); IMMATURE GRANULOCYTES 0.3 % (0-5); LYMPHOCYTES 22.5 % (15-50); MCV 90.5 fL (80.0-100.0); MEAN PLATELET VOLUME 9.1 fL (7.4-10.4); MONOCYTES 14.8 % (2-11); NEUTROPHILS 55.9 % (40-80); PLATELET COUNT 594 10x3/uL (130-400); RBC 4.21 10x6/uL (4.00-5.40); RDW 15.1 % (11.5-14.5); WBC 5.9 10x3/uL (4.8-10.8)
[2020-03-02 06:57] LABS: ANION GAP 6.2 mmol/L (8-16); CALCIUM 8.8 mg/dL (8.5-10.1); CARBON DIOXIDE 32.7 mmol/L (21.0-32.0); CREATININE - SERUM 0.8 mg/dL (0.6-1.3); POTASSIUM - SERUM 4.9 mmol/L (3.5-5.1)
--- NOTE | 2020-03-02 07:21 | NUR ---
PT IN BED, NO NEEDS NOTED, FALL PRECAUTIONS IN PLACE, FLUIDS/CALL LIGHT WITHIN REACH
[2020-03-02 08:00] VITALS: BP 116/67
--- NOTE | 2020-03-02 16:09 | NUR ---
PT DANIEL REMOVED, INCISION ADHERED WELL, NO STERI STRIPS NEEDED, HEALED NICELY
--- NOTE | 2020-03-02 16:44 | NUR ---
CLINICAL UPDATES FAXED TO [facility]. #[id number], FAXED TO WITH CONFORMATION RECIEVED OF DISCHARGE DATE BEING 03/04/20
--- NOTE | 2020-03-02 20:16 | NUR ---
PT LYING IN BED WITH HEAD ELEVATED PT IS AWAKE AND ALERT NO SIGNS OF DISTRESS NOTED. RESPIRATIONS EVEN AND UNLABORED. NO COMPAINTS AT THIS TIME CALL LIGHT AND OTHER PERSONAL ITEMS WITH IN REACH. PT ENCOUARGED TO CALL FOR HELP WHEN GETTING IN AND OUT OF BED. WILL CONTINUE TO MONITOR
[2020-03-02 21:10] VITALS: BP 114/70
--- NOTE | 2020-03-03 01:10 | NUR ---
I have reviewed this patient and I concur with the Shift Assessment completed by the Licensed Practical Nurse today this shift.
--- NOTE | 2020-03-03 02:33 | NUR ---
PT RESTING IN BED QUIETLY WITH EYES CLOSED. EAISLY AWAKEN WITH VOICE STIMULATION. PT HAS NO COMPLAINTS AT THIS TIME. CALL LIGHT AND OTHER PERSONAL ITEMS WITH IN REACH. WILL CONTINUE TO MONITOR
--- NOTE | 2020-03-03 07:30 | NUR ---
RESTING IN BED WITH EYES CLOSED, NO S/S OF DISTRESS NOTED, RESP EVEN AND UNLABORED, C/L AND FLUIDS IN REACH.
[2020-03-03 08:00] VITALS: BP 105/73
--- NOTE | 2020-03-03 09:30 | NUR ---
ASSESSMENT COMPLETE, DENEIS ANY NEEDS, C/L AND FLUIDS IN REACH.
--- NOTE | 2020-03-03 12:32 | NUR ---
UP IN W/C EATING LUNCH, DENIES ANY NEEDS AT THIS TIME, C/L AND FLUIDS IN REACH.
--- NOTE | 2020-03-03 13:48 | NUR ---
PATIENT DISCHARGING HOME TOMORROW WITH FAMILY. [facility] WILL PROVIDE THERAPY AT HOME. NO NEW DME NEEDED AT THIS TIME.DR. MARTIN 03/10/20 @ 12:15, DR. LEWIS 03/16/20 @ 10:15. ALEXANDRA SIGNED, IMM SERVED AND EXPLAINED, ONE GIVEN TO PATIENT AND ONE FILED IN CHART. COMPARE DATA REVIEWED AND [facility]. ORDERS FAXED TO HOME HEALTH AND PCP. WILL CONTINUE TO FOLLOW WITH PATIENT.
--- NOTE | 2020-03-03 16:00 | NUR ---
AWAKE AND ALERT UP IN W/C, DENIES ANY NEEDS AT THIS TIME, C/L AND FLUIDS IN REACH.
--- NOTE | 2020-03-03 19:49 | NUR ---
PT LYING IN BED RESTING QUIETLY WITH EYES CLOSED. EASILY AWAKEN WITH VOICE STIMULATION. NO SIGNS OF DISTRESS NOTED AT THIS TIME. RESPIRATIONS EVEN AND UNLABORED. PT HAS NO COMPLAINTS AT THIS TIME. BED ALARM ON AND ACTIVE. CALL LIGHT AND OTHER PERSONAL ITEMS WITH IN REACH. PT ENCOURAGED TO CALL FOR HELP WHEN NEEDED. WILL CONTINUE TO MONITOR
[2020-03-03 20:01] VITALS: BP 125/63
--- NOTE | 2020-03-04 00:14 | NUR ---
I have reviewed this patient and I concur with the Shift Assessment completed by the Licensed Practical Nurse today this shift.
--- NOTE | 2020-03-04 03:20 | NUR ---
PT RESTING IN BED WITH EYES CLOSED. EASILY AWAKEN WITH VOICE STIMULATION. CALL LIGHT AND OTHER PERSONAL ITEMS WITH IN REACH. BED ALARM ON AND ACTIVE. WILL CONTINUE TO MONITOR.
[2020-03-04 05:25] LABS: BASOPHILS 0.7 % (0-2); EOSINOPHILS 7.3 % (0-7); HEMATOCRIT 37.9 % (36.0-48.0); HEMOGLOBIN 11.5 g/dL (12-16); IMMATURE GRANULOCYTES 0.5 % (0-5); LYMPHOCYTES 20.3 % (15-50); MCH 27.6 pg (26.0-34.0); MCHC 30.3 g/dL (31.0-37.0); MCV 91.1 fL (80.0-100.0); MEAN PLATELET VOLUME 8.9 fL (7.4-10.4); MONOCYTES 16.4 % (2-11); NEUTROPHILS 54.8 % (40-80); PLATELET COUNT 532 10x3/uL (130-400); RBC 4.16 10x6/uL (4.00-5.40); RDW 15.2 % (11.5-14.5); WBC 5.6 10x3/uL (4.8-10.8)
[2020-03-04 06:00] LABS: ANION GAP 8.1 mmol/L (8-16); CALCIUM 9.3 mg/dL (8.5-10.1); CARBON DIOXIDE 31.3 mmol/L (21.0-32.0); CREATININE - SERUM 0.8 mg/dL (0.6-1.3); POTASSIUM - SERUM 4.4 mmol/L (3.5-5.1)
[2020-03-04 07:49] VITALS: BP 116/53
--- NOTE | 2020-03-04 07:51 | NUR ---
AWAKE AND ALERT IN BED, ASSESSMENT COMPLETE, DENIES ANY NEEDS AT THIS TIME, EATING BREAKFAST, C/L AND FLUIDS IN REACH.
--- NOTE | 2020-03-04 12:14 | NUR ---
UP IN W/C EATING LUNCH, DENIES ANY NEEDS AT THIS TIME, C/L AND FLUIDS IN REACH.
--- NOTE | 2020-03-04 14:25 | NUR ---
PATIENT DISCHARGED TO HOME VIA W/C WITH CAREGIVER. PT. LEFT WITH ALL BELONGINGS. REVIEWED ALL MEDICATIONS, FOLLOW UP APPOINTMENTS AND HOME HEALTH. CALLED MEDICATIONS TO PHARMACY.
--- NOTE | 2020-03-04 14:48 | NUR ---
ORDER FAXED TO [facility] FOR A [facility]LL[facility] WALKER TO BE DELIVER TO PATIENT HOME.
== END 2020-03-04 14:27 | disposition home health service (06) | DRG 560 ==
LOC: D.REHAB 16:04
PROVIDERS: ADMIT Emergency Medicine; ATTEND Emergency Medicine
DX: S72.001D Fracture of unspecified part of neck of right femur, subsequent encounter for closed fracture with routine healing (principal); N17.9 Acute kidney failure, unspecified; E87.1 Hypo-osmolality and hyponatremia; E44.0 Moderate protein-calorie malnutrition; R53.1 Weakness; M19.90 Unspecified osteoarthritis, unspecified site; F03.90 Unspecified dementia, unspecified severity, without behavioral disturbance, psychotic disturbance, mood disturbance, and anxiety; K21.9 Gastro-esophageal reflux disease without esophagitis; D64.9 Anemia, unspecified; R26.9 Unspecified abnormalities of gait and mobility; R53.83 Other fatigue; F41.8 Other specified anxiety disorders

== ENCOUNTER → 2021-02-03 14:19 | Outpatient (CLI) | payer OTHER ==
[2020-02-18 14:18] VITALS: BMI 20.8
== END | disposition home or self-care (01) ==
LOC: D.LABREF 14:19
PROVIDERS: ATTEND Surgery
DX: J34.89 Other specified disorders of nose and nasal sinuses (principal)